=== PATIENT | male | born 1970 | race Caucasian/White ===

== ENCOUNTER 2017-10-11 13:12 | Day surgery (SDC) | payer MEDICARE, SELFPAY ==
[2017-10-11 13:49] VITALS: BP 140/91; PULSE 87; RESP 17; O2SAT 96; BMI 42.3
[2017-10-11 14:30] VITALS: BP 174/104; PULSE 78; RESP 20; O2SAT 97
[2017-10-11 14:32] VITALS: BP 174/106; PULSE 78; RESP 20; O2SAT 97
--- NOTE | 2017-10-11 14:32 | HMH.PMPROC ---
- Procedure Date: 10/11/17 Time: 14:35 Anesthesiologist:: Blas Rain MD Complications:: None Pre-procedure Diagnosis:: Degenerative disc disease of the lumbar spine postlaminectomy syndrome lumbar spine Post-procedure Diagnosis:: Same Indications for Procedure:: Patient is a pleasant 47-year-old white male who we are treating for chronic back pain secondary to have disc disease of the lumbar spine and postlaminectomy syndrome. Patient is currently doing well with intrathecal pain pump therapy. Patient presents today for intrathecal pain pump refill and reprogram. He is doing well with his intrathecal pain pump however he is having some increasing pain recently. He has increased pain with increased activity. We will refill his pump and increase his infusion today. Currently he is going at 0.75 mg per day. We will increase him to 1 mg per day of intrathecal morphine. Procedure Details:: Informed consent was obtained and the risks and benefits of the procedure was explained to the patient. The patient was taken to the procedure room. The pump was interrogated. The area over the pump was prepped using ChloraPrep. The pump was accessed with a 22-gauge needle. Approximately 4 mL's of the intrathecal solution was withdrawn and discarded. The pump was then refilled with 20 mL's of intrathecal morphine 5 mg per ml. The pump was interrogated and the infusion was increased to 1 mg per day. The patient tolerated the procedure well with no complication. Plan and Disposition:: We will follow-up with him in 3 months at his next pump refill. If he has any problems or needs a further increase he is to call us in the pain clinic.
[2017-10-11 14:51] VITALS: BP 134/88; PULSE 90; RESP 17; O2SAT 95
[2017-10-11 21:08] LABS: Amphetamine/Metha Screen,Urine Negative ng/mL (<1000); Barbiturates Screen,Urine Negative ng/mL (<200); Benzodiazepines Screen,Urine Negative ng/mL (200); Cannabinoid Screen,Urine Negative ng/mL (<50); Cocaine Screen,Urine Negative ng/g (<300); Methadone Screen,Urine Negative ng/mL (<300); Opiate Screen,Urine Positive ng/mL (<300); Phencyclidine Screen,Urine Negative ng/mL (<25)
[2017-10-25 08:23] LABS: Codeine Negative (Cutoff=100); Hydrocodone Negative (Cutoff=100); Hydromorphone Negative (Cutoff=100); Morphine Positive (.)
[2017-10-27 10:33] LABS: Opiates Positive (.)
== END 2017-10-11 14:53 | disposition home or self-care (01) ==
LOC: SC.PAINP 13:14
PROVIDERS: Family Provider Family Medicine; PCP Family Medicine; Visit Provider Nurse Anesthetist, Certified Registered
DX: M51.36 Other intervertebral disc degeneration, lumbar region (principal); M96.1 Postlaminectomy syndrome, not elsewhere classified
CPT/HCPCS: 62370; 80305; 80361; G0480

== ENCOUNTER → 2018-05-10 06:47 | Outpatient (CLI) | payer MEDICARE, SELFPAY ==
--- NOTE | 2018-05-10 06:54 | NM_ITS ---
History and Indications: Hypertension, family history, chest pain, shortness of breath, palpitations and fatigue Procedure: Patient exercised on Zana protocol 9 minutes, resting heart rate was 63 bpm, resting blood pressure 139/71, with exercise maximum heart rate achieved was 82 bpm which is greater than 85% of the maximum predicted heart rate and a blood pressure was 216/80. Test was stopped due to chest pain and shortness of breath. Patient has good exercise capacity achieved 10.1mets of workload on treadmill, the blood pressure response to exercise was hypertensive. Electrocardiogram: Resting electrocardiogram showed sinus rhythm, with exercise there is less than 1.[address] segment depression noted from the baseline EKG. The EKG portion of the exercise Myoview is negative for ischemia. Cardiac stress and resting SPECT images: Cardiac stress and rest SPECT images were obtained using technetium 99 Myoview 31.0 mCi at stress and 10.2 mCi at rest. Gated SPECT further analysis of segmental wall motion and calculation of the ejection fraction also done. Cardiac stress and rest SPECT images show a mild fixed defect in the inferior wall with normal contractility in the gated SPECT is likely secondary to soft tissue attenuation, no reversible ischemia seen. There are ejection fraction is 56% with no obvious regional wall motion abnormality, right ventricle is normal size and contractility. Conclusion: 1. The EKG portion of the exercise Myoview is negative for ischemia, patient has good exercise capacity achieved 10.1mets of workload on treadmill, the blood pressure response to exercise was hypertensive, test was stopped due to chest pain and shortness of breath. 2. No obvious scintigraphic evidence of reversible ischemia seen at this level of exercise, computer derived ejection fraction is 57% with no obvious regional wall motion abnormality, right ventricle is normal size and contractility.
== END ==
PROVIDERS: Family Provider Family Medicine; PCP Family Medicine; Visit Provider Family Medicine
DX: R07.9 Chest pain, unspecified (principal)
CPT/HCPCS: 78454; 93017; A9502

== ENCOUNTER → 2018-08-20 10:29 | Outpatient (POV) | payer MEDICARE, SELFPAY ==
[2018-08-20 10:51] VITALS: BP 161/87; PULSE 81; RESP 18; O2SAT 98; BMI 38.5
--- NOTE | 2018-08-20 10:58 | HMH.PMPROC ---
- Procedure Date: 08/20/18 Time: 10:55 Anesthesiologist:: Sheryl Del Toro APRN Complications:: None Pre-procedure Diagnosis:: Degenerative disc disease lumbar spine with postlaminectomy syndrome Post-procedure Diagnosis:: Same Indications for Procedure:: Patient is a pleasant 48-year-old white male who presents today for intrathecal pain pump adjustment along with discussion on his bilateral knee pain. Patient is tried injections in his knees before and has had no success with it. Patient has not been seen by Ragini Sahni. Patient has no recent x-rays. Patient rates his pain 8 out of 10. Patient is currently on a interthecal morphine pump going at 1 mg/day. We will give him a small increase. He denies side effects. Physical Exam General: Alert and oriented x3, no acute distress, pleasant and cooperative, Lungs: Resps E/U, Symmetrical chest expansion, Eyes: PERRL Musculoskeletal: Flexion and extension of lumbar spine somewhat guarded secondary to pain, deep tendon reflexes normal, strength in upper and lower extremities [5/5], [abnormal gait noted], range of motion bilateral knees somewhat guarded secondary to pain Neurological: speech clear, escort blind equal, no gross sensory deficits Procedure Details:: Informed consent was obtained and the risk and benefits of the procedure were explained to the patient. The patient was taken to the procedure room where noninvasive monitoring was placed including noninvasive blood pressure cuff and pulse oximeter. Patient's pump was interrogated. The infusion rate was increased to 1.25 mg/day. The patient tolerated the procedure well. Plan and Disposition:: We will set up the patient for x-rays of his bilateral knees and refer him to orthopedics. We will see the patient back at his next intrathecal pain pump refill and reprogram. Patient's been instructed to call the office if he has any issues prior to his next appointment. This note was dictated using voice recognition software and may contain errors or omissions
--- NOTE | 2018-08-20 11:04 | XR_ITS ---
XR knee LT 3V HISTORY: ITS.REASON: BILATERAL KNEE PAIN ORDERING PHYSICIAN: Sheryl Del Toro PATIENT AGE: 48 years COMPARISON: None FINDINGS: No fracture or dislocation. No lytic or blastic change. Normal mineralization. No significant arthritic changes evident. There is an ununited tibial tuberosity without fragmentation. No other significant findings IMPRESSION: No acute finding
--- NOTE | 2018-08-20 11:04 | XR_ITS ---
XR knee RT 3V HISTORY: Lateral right knee pain ORDERING PHYSICIAN: Sheryl Del Toro PATIENT AGE: 48 years COMPARISON: None FINDINGS: No fracture or dislocation. No lytic or blastic change. Normal mineralization. No significant arthritic changes evident. Tibial tuberosity is ununited with some minimal fragmentation and mild soft tissue swelling which may be seen with adult Pete-Schlatter's disease. Please correlate with clinical findings. IMPRESSION: 1. No acute finding. 2. Ununited tibial tuberosity with fragmentation and mild soft tissue swelling which may be seen with adult Pete-Schlatter's. Please correlate clinically
== END ==
LOC: SC.PAIN 10:30 → RAD 11:01
PROVIDERS: PCP Family Medicine; Visit Provider Clinical Nurse Specialist Family Health
DX: M25.561 Pain in right knee (principal); M25.562 Pain in left knee
CPT/HCPCS: 73562

== ENCOUNTER → 2018-08-28 09:10 | Outpatient (POV) | payer MEDICARE, SELFPAY ==
[2018-08-28 09:20] VITALS: BP 153/93; PULSE 90; RESP 18; O2SAT 98; BMI 38.5
--- NOTE | 2018-08-28 09:29 | HMH.PAINSOAP ---
[facility] Pain Management SOAP Note Subjective:: Patient is a pleasant 48-year-old white male who presents today for follow-up after x-rays. Patient has an appointment with Dr. Ronak Dallas for orthopedic evaluation. I encouraged him to keep this. Patient rates his pain 8 out of 10 however it is mostly in his knees. I will follow-up with him at his next intrathecal pain pump refill and reprogram. ROS General: no recent weight change, no fever, no sleep disturbances Respiratory: no cough, no shortness of air, no recurring pulmonary infections Cardiovascular/Peripheral Vascular: No chest pain, No palpitations, no edema, no shortness of breath. Gastrointestinal: no incontinence, normal bowel movements reported Genitourinary: no incontinence Musculoskeletal: Knee pain bilaterally Psychiatric: normal mood/ affect Neurological: [denies weakness in extremities], [denies balance issues] Objective:: Physical Exam General: Alert and oriented x3, no acute distress, pleasant and cooperative, [on room air] Lungs: Resps E/U, Symmetrical chest expansion, Eyes: PERRL Musculoskeletal: Flexion and extension of lumbar spine somewhat guarded secondary to pain, deep tendon reflexes normal, strength in upper and lower extremities [5/5], [abnormal gait noted] Neurological: speech clear, events director equal, no gross sensory deficits Assessment:: Degenerative disc disease lumbar spine with postlaminectomy syndrome and bilateral knee pain Plan:: We will follow-up with the patient is next intrathecal pain pump refill and reprogram. Patient's been to call the office if he has any issues prior to his next appointment. Patient is going to see his orthopedic surgeon today. This note was dictated using voice recognition software and may contain errors or omissions
== END ==
PROVIDERS: PCP Psychiatry & Neurology Sleep Medicine; Visit Provider Clinical Nurse Specialist Family Health
DX: M51.36 Other intervertebral disc degeneration, lumbar region (principal); M96.1 Postlaminectomy syndrome, not elsewhere classified; M25.561 Pain in right knee; M25.562 Pain in left knee
CPT/HCPCS: 99213

== ENCOUNTER → 2018-09-13 12:20 | Outpatient (CLI) | payer MEDICARE, SELFPAY ==
--- NOTE | 2018-09-13 12:25 | IR_ITS ---
CT knee RT w con, IR arthrogram knee RT INDICATION: Persistent right lateral knee pain following injury ITS.REASON: RIGHT KNEE PAIN ORDERING PHYSICIAN: Roberto Tineo PATIENT AGE: 48 years COMPARISON: None TECHNIQUE: Following obtaining informed consent under fluoroscopic guidance using aseptic technique, a lateral patellar approach was first attempted for contrast injection into the knee joint with a 25-gauge needle.. Intra-articular injection was not confirmed initially therefore, anterior approach was performed with a 25-gauge needle and intra-articular injection medially confirmed. Approximately 35 cc of a mixture of 1% lidocaine and Isovue 300 was injected without incident. No immediate complications. Spot images were obtained Fluoroscopy time: 2 minutes and 12 seconds The patient was then taken to the CT suite where axial images are obtained of the knee with multiplanar reformats. All CT scans at the facility use one or more dose reduction, viz: automated exposure control, ma/kV adjustment per patient size (including targeted exams where dose is matched to indication, i.e. head), or iterative reconstruction technique. FINDINGS: Ununited tibial tuberosity apophysis. The posterior cruciate and anterior cruciate ligaments are identified and appear intact. Contrast fills the supra patellar recess. There is a sclerotic lesion in the superior aspect of the patella with a bone island which measures 7 mm. The contrast outlines the menisci. No obvious meniscal tear is identified.. There is minimal irregularity of the articular cartilage of the medial femoral condyle IMPRESSION: 1. No evidence of meniscal tear. Cruciate ligaments appear intact. 2. Minimal articular cartilage irregularity of the medial femoral condyle IMPRESSION:
== END ==
PROVIDERS: PCP Family Medicine; Visit Provider Orthopaedic Surgery Adult Reconstructive Orthopaedic Surgery
DX: M25.561 Pain in right knee (principal); R55 Syncope and collapse
CPT/HCPCS: 73580; 73701; 93225; 93226; Q9967

== ENCOUNTER → 2018-09-14 14:59 | Outpatient (CLI) | payer MEDICARE, SELFPAY ==
[2018-09-14 15:06] LABS: Adenovirus F 40/41, stool Not Detected (NotDetected); Astrovirus Not Detected (NotDetected); Campylobacter Not Detected (NotDetected); Clostridium Difficile A/B, PCR Not Detected (NotDetected); Cryptosporidium Not Detected (NotDetected); Cyclospora Cayetanesis Not Detected (NotDetected); Entamoeba histolytica Not Detected (NotDetected); Enteroaggregative E coli Not Detected (NotDetected); Enteropathogenic E coli Not Detected (NotDetected); Enterotoxigenic E coli Not Detected (NotDetected); Giardia lamblia Not Detected (NotDetected); Norovirus Not Detected (NotDetected); Plesimonas Shigalloides, PCR Not Detected (NotDetected); Rotavirus A Not Detected (NotDetected); Salmonella, PCR Not Detected (NotDetected); Sapovirus Not Detected (NotDetected); Shiga-like toxin E coli Not Detected (NotDetected); Shigella Enterovasive E coli Not Detected (NotDetected); Vibrio Cholerae Not Detected (NotDetected); Vibrio, PCR Not Detected (NotDetected); Yersinia Entercolitica, PCR Not Detected (NotDetected)
== END ==
LOC: LAB 15:02 → LAB.DROPOF 15:05
PROVIDERS: Visit Provider Physician Assistant
DX: R19.7 Diarrhea, unspecified (principal)
CPT/HCPCS: 87507

== ENCOUNTER → 2018-09-28 10:25 | Outpatient (POV) | payer MEDICARE, SELFPAY ==
[2018-09-28 10:36] VITALS: BP 144/84; PULSE 89; O2SAT 100; BMI 41.4
--- NOTE | 2018-09-28 10:50 | HMH.PMPROC ---
- Procedure Date: 09/28/18 Time: 10:50 Anesthesiologist:: Blas Rain MD Complications:: None Pre-procedure Diagnosis:: Degenerative disc disease of lumbar spine with lumbar radicular symptoms Post-procedure Diagnosis:: Same Indications for Procedure:: This patient is a pleasant 48-year-old white male who we are treating for low back pain with lumbar radicular symptoms. He had his pump increased to 1.25 mg/day morphine at his last visit. This was approximately a month ago. Since his last increase he has had excessive drowsiness has been unable to sleep at night with restless leg. He did not have any of this before his increase. He was better with his symptoms prior to the increase. He is most likely getting overmedicated. We will decrease his pump back down to his previous dose of 1 mg/day of intrathecal morphine. Procedure Details:: Interrogation and reprogramming of intrathecal pain pump Informed consent was obtained and the risk and benefits of the procedure was explained to the patient. Patient was taken to the procedure room. The pump was interrogated. Intrathecal morphine pain pump was decreased from 1.25 mg/day to 1 mg/day. Patient tolerated the procedure well with no complications. Plan and Disposition:: We will follow-up with him in 2 weeks. Will reevaluate symptoms at that time. He is scheduled to have surgery on his knee by Dr. Koch. He has a meniscal tear. He will have a knee arthroscopy with meniscal repair.
== END ==
PROVIDERS: PCP Family Medicine; Visit Provider Clinical Nurse Specialist Family Health
DX: M51.16 Intervertebral disc disorders with radiculopathy, lumbar region (principal)
CPT/HCPCS: 62368

== ENCOUNTER → 2018-09-28 12:47 | Outpatient (CLI) | payer MEDICARE, SELFPAY ==
--- NOTE | 2018-09-28 14:07 | MR_ITS ---
EXAM: MRI brain without and with contrast. INDICATION: Persistent headaches with dizziness. Headache, dizziness, blurred vision ORDERING PHYSICIAN: Oliver Lerma MD PATIENT AGE: 48 years Comparison: None TECHNIQUE: Multiplanar multiecho sequences performed without and with gadolinium enhancement. FINDINGS: No midline shift, mass effect, intracranial hemorrhage, or hydrocephalus is evident. The cerebellopontine angles, cerebellum, brainstem are unremarkable. There is normal sands-white matter differentiation with no abnormal T2 white matter hyperintensities evident. No enhancing lesions apparent. No intra or extra-axial mass or hemorrhage. No large aneurysms. Small aneurysms may not be seen with this technique and may be better evaluated for with MRA if clinically warranted. The hippocampal gyri anterior frontal horns of the lateral ventricles are unremarkable. No mastoid effusion or sinus air-fluid level. The pituitary, optic chiasm, and craniocervical junction have an unremarkable IMPRESSION: Negative MRI of the brain without contrast
--- NOTE | 2018-09-28 14:33 | XR_ITS ---
XR abdomen min 2V COMPARISON: KUB and upright abdomen 02/02/2016 HISTORY: Evaluation for pain pump placement TECHNIQUE: AP and lateral views lower abdomen sacrum and coccyx FINDINGS: The pain pump is seen just beneath the surface of the skin projecting over the superior aspect of the right SI joint. The metallic brackets and pedicle screws are again seen for fusion of L4, L5 and S1. The small caliber catheter extending from the pain pump appears to an of the spinal canal at L5-S1 level and is seen extending upward off the [id number] but at least above the L2 vertebral body. IMPRESSION: Pain pump and catheter positioning as described
--- NOTE | 2018-09-28 15:31 | HMH.ITSHM ---
Current Home Medications as stated by this patient Roberto Medeiros JR or market survey representative. [] MORPHINE LOSARTAN POTASSIUM MELOXICAM LEVOTHYROXINE
== END ==
PROVIDERS: PCP Family Medicine; Visit Provider Family Medicine
DX: R55 Syncope and collapse (principal)
CPT/HCPCS: 62368; 70553; 74019; 95816; A9576

== ENCOUNTER → 2018-10-05 06:59 | Outpatient (CLI) | payer MEDICARE, SELFPAY ==
--- NOTE | 2018-10-05 07:01 | CA_ITS ---
PROCEDURE: 2-D M-mode and color Doppler study INDICATIONS FOR THE TEST: Chest pain+ COPD Heart Murmur Tobacco Smoking Palpitations+ Fatigue Syncope+ Edema+ Hypertension+Diabetes Mellitus Rheumatic Fever SOB RODRIGUEZ Obesity+Hyperlipidemia Family History HD Additional History ANGEL PATIENT INFORMATION HEIGHT: 74 WEIGHT:328 GENDER: Male B/P:143/97 2-D/M-MODE INTERPRETATION: 2-D MEASUREMENTS OBSERVED VALUES IN CMS Right Ventricular Dimension (RVDd) 1.2 Interventricular Septum (Thickness)(IVsd) 0.9 Left Ventricular Internal Dimensions(LVIDd) 5.7 Left Ventricular Posterior Wall (Thickness)(LVPWd) 0.9 Aortic Root 3.7 Aortic Cusp Separation 2.6 Left Atrial Dimensions (LAD) 3.9 2D 1. Left atrium is mildly enlarged, left ventricle is normal size, there is mild qualitative concentric left ventricular hypertrophy, visually estimated ejection fraction of 55% with no regional wall motion abnormality. 2. The right atrium and right ventricle are normal size and contractility. 3. The aortic valve is minimally thickened and fibrosed. 4. The mitral and tricuspid valve leaflets are minimally thickened. 5. The pulmonic valve is poorly visualized. 6. No significant pericardial effusion noted. DOPPLER INTERROGATION: Doppler interrogation of the aortic, mitral and tricuspid valvular presence of mild mitral and tricuspid regurgitation, tricuspid regurgitation jet velocity is inadequate for calculation of the right ventricular systolic pressure, grade 1 diastolic dysfunction seen with tissue Doppler evidence of raised left atrial pressure. CONCLUSION: 1. Mildly enlarged left atrium, normal left ventricular size, mild qualitative concentric left ventricular hypertrophy, visually estimated ejection fraction 55% with no regional wall motion abnormality, grade 1 diastolic dysfunction seen with tissue Doppler evidence of raised left atrial pressure. 2. Mild mitral and tricuspid regurgitation 3. No significant pericardial effusion noted.
--- NOTE | 2018-10-05 07:01 | NM_ITS ---
History and Indications: Hypertension, family history, palpitations and fatigue Procedure: Patient received a 0.4 mg of intravenous Lexiscan, resting heart rate was 64 bpm resting blood pressure 145/90, scan maximum heart rate achieved was 87 bpm which is less than 85% of the maximum predicted heart rate and a blood pressure was 147/85. With Lexiscan patient complained of shortness of breath. Electrocardiogram: Resting electrocardiogram showed sinus rhythm, with Lexiscan there is less than 1.[address] segment depression from the baseline EKG. The EKG portion of the Lexiscan Myoview is nondiagnostic. Cardiac stress and resting SPECT images: Cardiac stress and rest SPECT images were obtained using technetium 99 Myoview 32.0 mCi stress and 10.5 mCi at rest, gated SPECT further analysis of segmental wall motion and calculation of ejection fraction also done. Cardiac stress and rest images show mild decreased tracer activity in the inferior wall which improves on the resting images suggestive of reversible ischemia. Computer derived ejection fraction is 56% with no regional wall motion abnormality, right ventricle is mildly enlarged with normal contractility. Conclusion: 1. The EKG portion of the Lexiscan Myoview is nondiagnostic. 2. Scintigraphic evidence of mild reversible ischemia involving the inferior wall, computer derived ejection fraction 56% with no regional wall motion abnormality, right ventricle is mildly enlarged with normal contractility. 3. Abnormal Lexiscan Myoview study.
--- NOTE | 2018-10-05 07:01 | CT_ITS ---
CT heart w calcium score INDICATION: Chest pain, family history of heart disease ITS.REASON: z ORDERING PHYSICIAN: Chris Mercado MD PATIENT AGE: 48 years COMPARISON: None TECHNIQUE: Axial images are obtained without contrast. Sagittal and coronal reformatted images are reviewed as well. All CT scans at the facility use one or more dose reduction, viz: automated exposure control, ma/kV adjustment per patient size (including targeted exams where dose is matched to indication, i.e. head), or iterative reconstruction technique. FINDINGS: Coronary artery calcium score 0. No identifiable atherosclerotic plaque with very low cardiovascular disease risk is. There are calcified nodes in the left hilum. IMPRESSION: Coronary artery calcium score of 0
== END ==
PROVIDERS: PCP Family Medicine; Visit Provider Internal Medicine Cardiovascular Disease
DX: R06.02 Shortness of breath; I10 Essential (primary) hypertension; R53.83 Other fatigue; R55 Syncope and collapse; Z82.49 Family history of ischemic heart disease and other diseases of the circulatory system; R07.89 Other chest pain
CPT/HCPCS: 75571; 78452; 93017; 93306; A9502; J2785

== ENCOUNTER → 2019-01-16 12:44 | Outpatient (POV) | payer MEDICARE, SELFPAY ==
[2019-01-16 12:55] VITALS: BP 148/94; PULSE 76; RESP 18; O2SAT 96; BMI 38.5
--- NOTE | 2019-01-16 13:26 | HMH.PMPROC ---
- Procedure Date: 01/16/19 Time: 13:27 Anesthesiologist:: Blas Rain MD Complications:: None Pre-procedure Diagnosis:: Degenerative disc disease of lumbar spine with lumbar radicular symptoms Post-procedure Diagnosis:: Same Indications for Procedure:: This patient is a pleasant 48-year-old white male who we are treating for low back pain with lumbar radicular symptoms. He has a intrathecal [employer] pain pump in place. He is currently going at 1 mg/day with concentration of 10 mg/mL. He has had 2 episodes where he has had blurry vision slurred speech and lethargy which is transient however was attributed to overmedication at the emergency room here in [facility]. His first episode was back in September his last episode was yesterday. He presents today for adjustment of his pump and to check pump logs to make sure there is no malfunction. We will also refer him to a neurologist as there may be another etiology for his blurred vision and slurred speech which may be transient such as a TIA. He is also supposed to see Dr. Torres for any surgical intervention and we will seek approval for intrathecal ziconotide as he may be a candidate for nonnarcotic medication. Procedure Details:: Pump adjustment and reprogramming Informed consent was obtained and the risk and benefits of the procedure was explained to the patient. Intrathecal pump was interrogated. Intrathecal morphine dose was decreased to 0.8 mg/day from 1 mg/day. We did check the logs and there is no evidence of malfunction. Low reservoir alarm date is 03/22/2019. Patient tolerated the procedure well with no complication. Plan and Disposition:: We will follow-up with this patient after he sees Dr. Aguilar and Dr. Torres. We will also seek approval for intrathecal ziconotide. If he has any problems with his pump he is to call us in the pain clinic.
== END ==
PROVIDERS: PCP Family Medicine; Visit Provider Anesthesiology
DX: M51.16 Intervertebral disc disorders with radiculopathy, lumbar region (principal); Z45.89 Encounter for adjustment and management of other implanted devices
CPT/HCPCS: 62368

== ENCOUNTER → 2019-01-17 15:14 | Outpatient (CLI) | payer MEDICARE, SELFPAY ==
--- NOTE | 2019-01-17 15:19 | MR_ITS ---
MR lumbar spine wo/w con, MR 3-d myelogram/MRCP HISTORY: Bilateral leg pain, numbness and tingling since back FX 2003. ITS.REASON: LOW BACK PAIN, prior back surgery ORDERING PHYSICIAN: Fei Torres PATIENT AGE: 48 years Comparison: X-RAY 08-18-08 TECHNIQUE: Standard multiplanar multiecho sequences are performed without contrast. 3-D MIP and myelographic images are also rendered and reviewed FINDINGS: There is normal alignment. The spinal cord ends at the L1 level. There has been prior posterior fusion with interpedicular screws at L4, L5, and S1 on the right and at L4 and S1 on the left. L1-L2: Unremarkable. L2-L3: Minimal bulging disc with mild facet and ligamentum flavum hypertrophy with mild bilateral foraminal narrowing. L3-L4: Mild ligamentum hypertrophic change with mild left lateral recess narrowing. L4-L5: Degenerative disc disease. Significant artifact from intrapedicular screws. There is ligamentum hypertrophy on the left with mild left lateral recess narrowing. L5-S1: Mild degenerative disc disease with artifact from the posterior fusion. There is mild bilateral foraminal narrowing from facet hypertrophic change. No canal stenosis or extruded herniated disc. IMPRESSION: 1. Postsurgical changes at L4-L5 and L5-S1 with artifact. 2. Lumbar spondylosis with mild bulging disc and ligamentum flavum and facet hypertrophic change with mild lateral recess and foraminal narrowing as detailed above. 3. No canal stenosis or disc herniation evident
--- NOTE | 2019-01-17 15:33 | XR_ITS ---
XR abdomen min 2V HISTORY: ITS.REASON: EVAL POSITION OF PAIN PUMP ORDERING PHYSICIAN: Fei Torres PATIENT AGE: 48 years COMPARISON: 09/28/2018 TECHNIQUE: AP and lateral views are obtained of the abdomen. FINDINGS: A rounded pain infusion pump is present in the subcutaneous tissues posterior to the right hemisacrum and is oriented parallel with the sacrum and not at a 90 degree angle to the long axis of the body. Prior posterior fusion with interpedicular screws at L4, L5, and S1. The pain catheter epidural line is noted and is above the upper border of the image. IMPRESSION: Pain pump and catheter present as described above
== END ==
PROVIDERS: PCP Family Medicine; Visit Provider Neurological Surgery
DX: M54.5 Low back pain (principal)
CPT/HCPCS: 72158; 74019; 76376; A9576

== ENCOUNTER → 2019-01-18 10:17 | Outpatient (POV) | payer MEDICARE, SELFPAY ==
[2019-01-18 10:30] VITALS: BP 136/85; PULSE 84; RESP 18; O2SAT 98; BMI 38.5
--- NOTE | 2019-01-18 11:08 | P.CONS_ITS ---
[facility] Pain Management SOAP Note Subjective:: This patient is a pleasant 48-year-old white male who we are seeing for side effects associated with his intrathecal pain pump. Releases pump 20% at his last visit. He is having increasing pain since we reduce his pump however he has had episodes with overmedication. He recently saw his primary care doctor and was given Percocet. I have discouraged the use of Percocet on top of his intrathecal pain pump as if we are dealing with overmedication he does not need to be taking any oral narcotics. We are awaiting appointment with Dr. Aguilar. We have reviewed his MRI which does show postoperative changes but no significant changes to his degenerative disc disease and ligamentum flavum hypertrophy with arthritis and bulging disc. There does not seem to be a surgical problem. He is not on a muscle relaxant or anti-inflammatory. I will start him on Zanaflex 4 mg 3 times a day and diclofenac 75 mg twice a day. I have talked to his about the recall on the Medtronic pump and I told him that his pump was not recalled. Also she is inquiring about kinking of the catheter. He has no signs and symptoms of kinking of his intrathecal catheter with no discrepancies and reservoir volumes with refills. He is scheduled for refill next week. We will seek approval for intrathecal catheter dye study to assess patency of the catheter. We are also waiting approval for Prialt as a nonnarcotic medication for his intrathecal therapy. Objective:: Alert and oriented x3 no acute distress. Patient does have an intrathecal pain pump currently running at 0.8 mg/day of intrathecal morphine. He has an antalgic gait. Motor strength of lower extremities is 5/5. There is no gross sensory deficit. Assessment:: Degenerative disease of lumbar spine with lumbar radiculopathy symptoms and postlaminectomy syndrome of lumbar spine Plan:: We are awaiting appointment with Dr. Aguilar. We have reviewed his MRI which does show postoperative changes but no significant changes to his degenerative disc disease and ligamentum flavum hypertrophy with arthritis and bulging disc. There does not seem to be a surgical problem. He is not on a muscle relaxant or anti-inflammatory. I will start him on Zanaflex 4 mg 3 times a day and diclofenac 75 mg twice a day. I have talked to his about the recall on the Medtronic pump and I told him that his pump was not recalled. Also she is inquiring about kinking of the catheter. He has no signs and symptoms of kinking of his intrathecal catheter with no discrepancies and reservoir volumes with refills. He is scheduled for refill next week. We will seek approval for intrathecal catheter dye study to assess patency of the catheter. We are also waiting approval for Prialt as a nonnarcotic medication for his intrathecal therapy.
== END ==
PROVIDERS: PCP Family Medicine; Visit Provider Anesthesiology
DX: M51.16 Intervertebral disc disorders with radiculopathy, lumbar region (principal); M96.1 Postlaminectomy syndrome, not elsewhere classified
CPT/HCPCS: 99211

== ENCOUNTER → 2019-02-06 07:57 | Outpatient (CLI) | payer MEDICARE, SELFPAY ==
--- NOTE | 2019-02-06 08:02 | CI_ITS ---
Cerebrovascular Exam Indications: 780.2 Syncope and collapse. 784.3 Aphasia. IMPRESSIONS 1. The bilateral vertebral arteries are patent with normal antegrade flow. 2. Study suggests less than 20% stenosis involving the right internal carotid artery and the left internal carotid artery. technically difficult exam secondary to body habitus Carotid duplex study. Complete study and Doppler flow study including spectral analysis, color and sands scale imaging. Height: Height: 188cm. Height: 74in. Weight: Weight: 136.1kg. Weight: 299.4lb. Body mass index: BMI: 38.5kg/m^2. Body surface area: BSA: 2.72m^2. Location: Vascular laboratory. Patient status: Outpatient. Tables: Arterial flow: + +--------+--------+ Location V sys V ed + +--------+--------+ Right CCA - proximal 91.1cm/s 25.1cm/s + +--------+--------+ Right CCA - distal 101cm/s 29.9cm/s + +--------+--------+ Right ECA 114cm/s -------- + +--------+--------+ Right ICA - proximal 87.2cm/s 29.9cm/s + +--------+--------+ Right ICA - mid 78.6cm/s 19.6cm/s + +--------+--------+ Right ICA - distal 98.2cm/s 30.6cm/s + +--------+--------+ Right vertebral 47.9cm/s -------- + +--------+--------+ Left CCA - proximal 101cm/s 25.1cm/s + +--------+--------+ Left CCA - distal 123cm/s 41.6cm/s + +--------+--------+ Left ECA 90.4cm/s -------- + +--------+--------+ Left ICA - proximal 57.6cm/s 22.2cm/s + +--------+--------+ Left ICA - mid 64cm/s 28.5cm/s + +--------+--------+ Left ICA - distal 61.3cm/s 25.4cm/s + +--------+--------+ Left vertebral 33.8cm/s -------- + +--------+--------+ Velocity ratios: + + + + + + Right, V sys Right, V ed Left, V sys Left, V ed + + + + + + Max ICA/dist CCA 0.97 1.02 0.52 0.69 + + + + + + (Report amended ) Electronically signed by: German Marroquin [id number]
--- NOTE | 2019-02-06 08:06 | CT_ITS ---
CT lumbar spine wo con INDICATION: Low back pain and bilateral leg pain ITS.REASON: LOW BACK PAIN ORDERING PHYSICIAN: Fei Torres PATIENT AGE: 48 years COMPARISON: 01/17/2019 TECHNIQUE: Axial images obtained with sagittal and coronal reformats. All CT scans at the facility use one or more dose reduction, viz: automated exposure control, ma/kV adjustment per patient size (including targeted exams where dose is matched to indication, i.e. head), or iterative reconstruction technique. FINDINGS: There is normal alignment. There is an epidural catheter present which enters at the L5-S1 region posteriorly and directed superiorly with the superior tip at the T 11 region on the left. There is normal alignment. No acute fracture or dislocation evident. There has been prior posterior fusion at L4-5 and L5-S1. T11-T12: Minimal endplate osteophytes are noted anteriorly with minimal bulging disc. L1-L2: Unremarkable. L2-L3: Unremarkable. L3-L4: Minimal bulging disc along with mild facet and ligamentum flavum hypertrophy with mild bilateral lateral recess narrowing. L4-L5: Interpedicular screws are present at L4 bilaterally. There is hypertrophic change of the facets on both sides. There is mild degenerative disc disease at L4-L5 with bulging disc. Prior laminectomy defect posteriorly. L5-S1: There is a right interpedicular screw at L5 with mild hypertrophic changes of the facets and prior laminectomy at L5. Bilateral interpedicular screws are present at S1. Connecting rods are present bilaterally connecting the interpedicular screws. IMPRESSION: 1. Postsurgical changes with posterior fusion at L4-L5 and L5-S1 as described above. 2. Mild degenerative changes at T11-T12 and L3-L4.
== END ==
PROVIDERS: PCP Family Medicine; Visit Provider Neurological Surgery
DX: G93.40 Encephalopathy, unspecified (principal); R40.4 Transient alteration of awareness; M54.5 Low back pain; R55 Syncope and collapse
CPT/HCPCS: 72131; 93880

== ENCOUNTER → 2019-05-13 11:22 | Outpatient (POV) | payer MEDICARE, SELFPAY ==
[2019-05-13 11:52] VITALS: BP 138/77; PULSE 65; RESP 18; O2SAT 98; BMI 43.0
--- NOTE | 2019-05-13 12:47 | HMH.PMPROC ---
- Procedure Date: 05/13/19 Time: 12:48 Anesthesiologist:: Sheryl Del Toro APRN Complications:: None Pre-procedure Diagnosis:: Degenerative disc disease lumbar spine with lumbar radiculopathy and post laminectomy syndrome Post-procedure Diagnosis:: Same Indications for Procedure:: Patient is a pleasant 49-year-old white male who presents today for the turning down of his intrathecal pain pump. Patient states that Dr. Torres told him to have his pump weaned and removed and that he can take away his pain completely with surgery. At her last visit we had a long discussion in regards to this. We will wean the patient's pump down until it can be removed by Dr. Torres we will not be supplementing with any oral narcotic medications nor will we continue him on oral narcotic regimen post surgery. Patient states his pain is a 7 out of [address] Torres has told him that he will bridge him with oral narcotic supplementation. Physical Exam General: Alert and oriented x3, no acute distress, pleasant and cooperative, [on room air] Lungs: Resps E/U, Symmetrical chest expansion, Eyes: PERRL Musculoskeletal: Flexion and extension of lumbar spine somewhat guarded secondary to pain, deep tendon reflexes normal, strength in upper and lower extremities [5/5], [abnormal gait noted] Neurological: speech clear, fire equipment repairer inspector equal, no gross sensory deficits Procedure Details:: Informed consent was obtained and the risk and benefits of the procedure were explained to the patient. The patient was taken to the procedure room where noninvasive monitoring was placed including noninvasive blood pressure cuff and pulse oximeter. Patient's pump was interrogated and reprogrammed. The infusion rate was decreased to 0.72 mg of morphine a day. The patient tolerated the procedure well. Plan and Disposition:: We will continue to decrease the patient by 20%. We will turn him down in 2 weeks to 0.576 mg of morphine a day. Patient understands that once he is weaned off his intrathecal pain pump this will be the termination of his pump care and as prescribing any medications for him. I will follow-up with the patient in 2 weeks we will turn him down. He is been instructed to call the office if he has any issues prior to his next appointment. Dr. Rain has reviewed this note and agrees with this plan of care. This note was dictated using voice recognition software and may contain errors or omissions
--- NOTE | 2019-05-13 12:50 | P.PCN_ITS ---
- Procedure Date: 05/13/19 Time: 12:48 Anesthesiologist:: Sheryl Del Toro APRN Complications:: None Pre-procedure Diagnosis:: Degenerative disc disease lumbar spine with lumbar radiculopathy and post laminectomy syndrome Post-procedure Diagnosis:: Same Indications for Procedure:: Patient is a pleasant 49-year-old white male who presents today for the turning down of his intrathecal pain pump. Patient states that Dr. Torres told him to have his pump weaned and removed and that he can take away his pain completely with surgery. At her last visit we had a long discussion in regards to this. We will wean the patient's pump down until it can be removed by Dr. Torres we will not be supplementing with any oral narcotic medications nor will we continue him on oral narcotic regimen post surgery. Patient states his pain is a 7 out of [address] Torres has told him that he will bridge him with oral narcotic supplementation. Physical Exam General: Alert and oriented x3, no acute distress, pleasant and cooperative, [on room air] Lungs: Resps E/U, Symmetrical chest expansion, Eyes: PERRL Musculoskeletal: Flexion and extension of lumbar spine somewhat guarded second rocky to pain, deep tendon reflexes normal, strength in upper and lower extremities [5/5], [abnormal gait noted] Neurological: speech clear, charge entry specialist equal, no gross sensory deficits Procedure Details:: Informed consent was obtained and the risk and benefits of the procedure were explained to the patient. The patient was taken to the procedure room where noninvasive monitoring was placed including noninvasive blood pressure cuff and pulse oximeter. Patient's pump was interrogated and reprogrammed. The infusion rate was decreased to 0.72 mg of morphine a day. The patient tolerated the procedure well. Plan and Disposition:: We will continue to decrease the patient by 20%. We will turn him down in 2 weeks to 0.576 mg of morphine a day. Patient understands that once he is weaned off his intrathecal pain pump this will be the termination of his pump care and as prescribing any medications for him. I will follow-up with the patient in 2 weeks we will turn him down. He is been instructed to call the office if he has any issues prior to his next appointment. Dr. Rain has reviewed this note and agrees with this plan of care. This note was dictated using voice recognition software and may contain errors or omissions
== END ==
PROVIDERS: PCP Family Medicine; Visit Provider Clinical Nurse Specialist Family Health
DX: M51.16 Intervertebral disc disorders with radiculopathy, lumbar region (principal); M96.1 Postlaminectomy syndrome, not elsewhere classified
CPT/HCPCS: 62368

== ENCOUNTER → 2019-05-28 09:43 | Outpatient (POV) | payer MEDICARE, SELFPAY ==
--- NOTE | 2019-05-28 11:02 | HMH.PMPROC ---
- Procedure Date: 05/28/19 Time: 11:03 Anesthesiologist:: Sheryl Del Toro APRN Complications:: None Pre-procedure Diagnosis:: Degenerative disc disease lumbar spine with lumbar radiculopathy postlaminectomy syndrome Post-procedure Diagnosis:: Same Indications for Procedure:: patient is a pleasant 49-year-old white male who presents today for intrathecal pain pump adjustment. We are turning is in her goal infusion down. Patient states that Dr. Torres has promised him to take away all of his pain after surgery. Patient and I have had a long discussion in regards to this. He wants to continue to wean the patient's pump until its can be removed by Dr. Torres. We will not be supplementing any oral narcotic medications nor will we continue him on oral narcotic regimen post surgery. After the pump is removed and will terminate his relationship with his clinic. Patient understands that. Dr. Rain is aware of this. He rates his pain 8 out of 10. He is currently at 0.72 mg of morphine a day. Patient states that Dr. Torres has told him that he will bridge him to with oral narcotics supplementation. Physical Exam General: Alert and oriented x3, no acute distress, pleasant and cooperative, [on room air] Lungs: Resps E/U, Symmetrical chest expansion, Eyes: PERRL Musculoskeletal: Flexion and extension of lumbar spine somewhat guarded secondary to pain, deep tendon reflexes normal, strength in upper and lower extremities [5/5], slightly antalgic gait noted Neurological: speech clear, chair upholsterer equal, no gross sensory deficits Procedure Details:: Informed consent was obtained and the risk and benefits of the procedure were explained to the patient. The patient was taken to the procedure room where noninvasive monitoring was placed including noninvasive blood pressure cuff and pulse oximeter. Patient's pump was interrogated and reprogrammed. The infusion rate was decreased to 0.57 mg of morphine a day. The patient tolerated the procedure well. Plan and Disposition:: We will tentatively make an appointment to decrease his again in 2 weeks. He is in a contact Dr. Torres I discussed with him that this is a beginning dose that they should be able to remove it and bridge him with oral if necessary. He is been instructed to call the office if he has any issues prior to his next appointment. Dr. Rain has reviewed this note and agrees with this plan of care. This note was dictated using voice recognition software and may contain errors or omissions
[2019-05-28 11:07] VITALS: BP 135/89; PULSE 85; RESP 18; O2SAT 98; BMI 43.6
--- NOTE | 2019-05-28 11:07 | P.PCN_ITS ---
- Procedure Date: 05/28/19 Time: 11:03 Anesthesiologist:: Sheryl Del Toro APRN Complications:: None Pre-procedure Diagnosis:: Degenerative disc disease lumbar spine with lumbar radiculopathy postlaminectomy syndrome Post-procedure Diagnosis:: Same Indications for Procedure:: patient is a pleasant 49-year-old white male who presents today for intrathecal pain pump adjustment. We are turning is in her goal infusion down. Patient states that Dr. Torres has promised him to take away all of his pain after surgery. Patient and I have had a long discussion in regards to this. He wants to continue to wean the patient's pump until its can be removed by Dr. Torres. We will not be supplementing any oral narcotic medications nor will we continue him on oral narcotic regimen post surgery. After the pump is removed and will terminate his relationship with his clinic. Patient understands that. Dr. Rain is aware of this. He rates his pain 8 out of 10. He is currently at 0.72 mg of morphine a day. Patient states that Dr. Torres has told him that he will bridge him to with oral narcotics supplementation. Physical Exam General: Alert and oriented x3, no acute distress, pleasant and cooperative, [on room air] Lungs: Resps E/U, Symmetrical chest expansion, Eyes: PERRL Musculoskeletal: Flexion and extension of lumbar spine somewhat guarded secondary to pain, deep tendon reflexes normal, strength in upper and lower extremities [5/5], slightly antalgic gait noted Neurological: speech clear, center line cutter operator equal, no gross sensory deficits Procedure Details:: Informed consent was obtained and the risk and benefits of the procedure were explained to the patient. The patient was taken to the procedure room where noninvasive monitoring was placed including noninvasive blood pressure cuff and pulse oximeter. Patient's pump was interrogated and reprogrammed. The infusion rate was decreased to 0.57 mg of morphine a day. The patient tolerated the pro cedure well. Plan and Disposition:: We will tentatively make an appointment to decrease his again in 2 weeks. He is in a contact Dr. Torres I discussed with him that this is a beginning dose that they should be able to remove it and bridge him with oral if necessary. He is been instructed to call the office if he has any issues prior to his next appointment. Dr. Rain has reviewed this note and agrees with this plan of care. This note was dictated using voice recognition software and may contain errors or omissions
== END ==
PROVIDERS: PCP Family Medicine; Visit Provider Clinical Nurse Specialist Family Health
DX: M51.16 Intervertebral disc disorders with radiculopathy, lumbar region (principal); M96.1 Postlaminectomy syndrome, not elsewhere classified
CPT/HCPCS: 62368

== ENCOUNTER → 2019-06-10 11:14 | Outpatient (POV) | payer MEDICARE, SELFPAY ==
[2019-06-10 12:29] VITALS: BP 158/88; PULSE 87; RESP 18; O2SAT 98; BMI 42.3
--- NOTE | 2019-06-10 14:11 | HMH.PMPROC ---
- Procedure Date: 06/10/19 Time: 14:11 Anesthesiologist:: Sheryl Del Toro APRN Complications:: None Pre-procedure Diagnosis:: Postlaminectomy syndrome, degenerative disc disease lumbar spine with lumbar radiculopathy Post-procedure Diagnosis:: Same Indications for Procedure:: Patient is a pleasant 49-year-old white male who presents today for intrathecal pain pump adjustment. We are turning his infusion to minimal flow today. Patient states that Dr. Torres is promised him to take away all of his pain after surgery. Patient and I have had multiple long discussion in regards to this. He wants to continue to wean the pump and have it removed by Dr. Torres on July 02. We will not be supplementing any oral narcotic medications nor will we continue him on oral narcotic regimen post surgery. After the pump is removed it will terminate his relationship with our clinic. He rates his pain today an 8 out of 10. Physical Exam General: Alert and oriented x3, no acute distress, pleasant and cooperative, [on room air] Lungs: Resps E/U, Symmetrical chest expansion, Eyes: PERRL Musculoskeletal: Flexion and extension of lumbar spine somewhat guarded secondary to pain, deep tendon reflexes normal, strength in upper and lower extremities [5/5], [abnormal gait noted] Neurological: speech clear, clinical data associate equal, no gross sensory deficits Procedure Details:: Informed consent was obtained and the risk and benefits of the procedure were explained to the patient. The patient was taken to the procedure room where noninvasive monitoring was placed including noninvasive blood pressure cuff and pulse oximeter. Patient's pump was interrogated and reprogrammed. The infusion rate was turned to minimal flow. The patient tolerated the procedure well. Plan and Disposition:: We will call in some Zofran for the patient. Patient is going to call us if he has any issues. Dr. Rain has reviewed this note and agrees with this plan of care. This note was dictated using voice recognition software and may contain errors or omissions
--- NOTE | 2019-06-10 14:14 | P.PCN_ITS ---
- Procedure Date: 06/10/19 Time: 14:11 Anesthesiologist:: Sheryl De lToro APRN Complications:: None Pre-procedure Diagnosis:: Postlaminectomy syndrome, degenerative disc disease lumbar spine with lumbar radiculopathy Post-procedure Diagnosis:: Same Indications for Procedure:: Patient is a pleasant 49-year-old white male who presents today for intrathecal pain pump adjustment. We are turning his infusion to minimal flow today. Patient states that Dr. Torres is promised him to take away all of his pain after surgery. Patient and I have had multiple long discussion in regards to this. He wants to continue to wean the pump and have it removed by Dr. Torres on July 02. We will not be supplementing any oral narcotic medications nor will we continue him on oral narcotic regimen post surgery. After the pump is removed it will terminate his relationship with our clinic. He rates his pain today an 8 out of 10. Physical Exam General: Alert and oriented x3, no acute distress, pleasant and cooperative, [on room air] Lungs: Resps E/U, Symmetrical chest expansion, Eyes: PERRL Musculoskeletal: Flexion and extension of lumbar spine somewhat guarded secondary to pain, deep tendon reflexes normal, strength in upper and lower extremities [5/5], [abnormal gait noted] Neurological: speech clear, netbackup administrator equal, no gross sensory deficits Procedure Details:: Informed consent was obtained and the risk and benefits of the procedure were explained to the patient. The patient was taken to the procedure room where noninvasive monitoring was placed including noninvasive blood pressure cuff and pulse oximeter. Patient's pump was interrogated and reprogrammed. The infusion rate was turned to minimal flow. The patient tolerated the procedure well. Plan and Disposition:: We will call in some Zofran for the patient. Patient is going to call us if he has any issues. Dr. Rain has reviewed this note and agrees with this plan of care. This note was dictated using voice recognition software and may contain errors or omissions
== END ==
PROVIDERS: PCP Family Medicine; Visit Provider Clinical Nurse Specialist Family Health
DX: M96.1 Postlaminectomy syndrome, not elsewhere classified (principal); M51.16 Intervertebral disc disorders with radiculopathy, lumbar region
CPT/HCPCS: 62368

== ENCOUNTER → 2019-10-28 13:42 | Outpatient (CLI) | payer MEDICARE, SELFPAY ==
--- NOTE | 2019-10-28 13:45 | ECG_ITS ---
APPROVED REPORT Exam: Resting ECG HR:76 bpm ECG Measurements Heart Rate 76 AXES GA 170 P 47 QRSd 92 QRS 26 QT 384 T 32 QTc 432 <Conclusion> Normal sinus rhythm Normal ECG Electronically signed by : Tyler Almanza, 10/28/2019 17:47:07
== END ==
PROVIDERS: PCP Family Medicine; Visit Provider Surgery
DX: K81.1 Chronic cholecystitis (principal)
CPT/HCPCS: 93005

== ENCOUNTER → 2020-04-03 13:51 | Outpatient (CLI) | payer MEDICARE, SELFPAY ==
[2020-04-03 15:20] LABS: Coronavirus 19 IgG Antibody Negative (Negative); Coronavirus 19 IgM Antibody Negative (Negative)
== END ==
PROVIDERS: Visit Provider Internal Medicine Gastroenterology
DX: Z01.818 Encounter for other preprocedural examination (principal)
CPT/HCPCS: 36415; 86328

== ENCOUNTER 2020-04-06 11:51 | Day surgery (SDC) | payer MEDICARE, SELFPAY ==
[2020-04-01 11:42] VITALS: BMI 46.2
[2020-04-06 13:03] VITALS: BP 127/73; PULSE 68; RESP 18; TEMP 36.6; O2SAT 97
--- NOTE | 2020-04-06 13:46 | P.PN_ITS ---
[facility] Anesthesia Checklist - Patient Identification Patient Identification: Arm Band, Verbal (Name & ) - Structural Data Admitted From: Home Planned Operative Procedure/s: colon Consent for Planned Operative Procedure(s) Verified: Yes Verified Documents: History and Physical - NPO Status Verified Time NPO: 00:00 - Chart Verification Results Verified: CBC, BMP - Additional verifications Patient : No Anesthesia Reactions: No Hx Blood Transfusions: No Blood Transfusion Reaction: No Cephalosporin Allergy: No Previous Colonoscopy: No - Cardiovascular Assessment Heart Sounds: S1 & S2 Pulse Strength: Baseline Pulse Rhythm: Regular Peripheral Edema: No - Airway Assessment C-Spine Mobility Assessed: Yes TMJ Mobility Assessed: Yes Dentition: Good Dentition - Neurological Assessment Level of Consciousness: Awake, Alert, Appropriate Hx Seizures: No Numbness or tingling in extremities: No - Anesthesia Plan Anesthesia Risk discussed: Yes Anesthesia Plan: Verified ASA Class: III Anesthesia Type: MAC [facility] History I have reviewed the patient's past medical history: Yes Medical History: Reports:: Deep Vein Thrombosis, Hypertension Denies:: Cancer, Diabetes Mellitus Type 1, Diabetes Mellitus Type 2, Internal Pacemaker, MRSA, Seizures *Have you ever received a pneumonia vaccine?: No *Have you received a flu vaccine this season?: Yes Other Medical History: Reports: Hypothyroidism, Thyroid Disease, Other. Denies: Blood Transfusion Reaction Anesthesia experience/problems:: none Laterality Cases: Left: Other Other Surgeries: Yes: No Previous Surgery, Cholecystectomy, Other. No: Pacemaker Amputation: No Fractures: Yes (back surgrey x7) - *Social History Last grade of school completed: High school graduate Smoking Status: Never smoker # Packs/Day (cigarettes): 1 Alcohol Intake: never Alcohol Intake Frequency:: a few times a month Substance Use Type: denies use *Occupational Status:: disabled Housing: house Household Members: spouse *Travel in the last 8 weeks: None Family Hx:: Cancer, Hyperlipidemia, Diabetes, Heart Attack, Hypertension, Stroke
[2020-04-06 14:05] VITALS: O2SAT 97
--- NOTE | 2020-04-06 14:29 | HMH.PROC ---
[facility] Procedure Note Procedure Note:: Colonoscopy Procedure Report: Colonoscopy with cold snare polypectomy Endoscopist: Shelton Hirsch II, MD Referring physician: Isaac Lerma MD/Roberto Fowler MD Date of Procedure: April 06, 2020 Equipment: Olympus 180 variable stiffness pediatric colonoscope Sedation: MAC sedation Indication: Mr. Medeiros is a 50-year-old gentleman who is here for initial screening colonoscopy. He reports no abdominal pain, weight loss, change in his bowel habits or rectal bleeding. He reports no family history of colon cancer. Procedure: Prior to the procedure, a history and physical exam was performed, and patient's medications and allergies were reviewed. The risks, benefits and alternatives of the sedation and procedure were discussed with the patient. All questions were answered and informed consent was obtained. The patient was brought to the procedure room. Patient identification and proposed procedure were verified by the physician and the nurse. The patient was placed in a left lateral decubitus position and the scope was passed under direct vision. Throughout the procedure, the patient's blood pressure, pulse, and oxygen saturations were monitored continuously. The colonoscopy was accomplished without difficulty. The patient tolerated the procedure well. Findings: On digital rectal examination there was normal rectal tone. There were no external hemorrhoids. The prostate was moderately firm especially along the lower margin. The colonoscope was introduced through the anal canal to the rectum and advanced to the cecum. The ileocecal valve and appendiceal orifice were identified. The scope was advanced a short distance into the ileum which appeared grossly normal. The scope was then withdrawn into the colon. The cecum and ascending colon were normal. There was a 3 to 4 mm polyp in the transverse colon removed via cold snare polypectomy. The remainder of the descending, sigmoid and rectum were grossly normal. There were no other mucosal abnormalities. Upon retroflexion within the rectum there were grade 1-2 internal hemorrhoids.The preparation was excellent throughout with [place] Preparation Score of 9. The cecal time was 10 minutes. Impression: 1. Diminutive transverse colon polyp 2. Grade 1-2 internal hemorrhoids Plan: I will follow up the polyp pathology and recommend repeat colonoscopy again in 7-10 years based upon the polyp histology. I would encourage fiber supplementation on a long-term daily maintenance basis.
[2020-04-06 14:32] VITALS: BP 106/64; PULSE 69; RESP 18; TEMP 37; O2SAT 95
[2020-04-06 14:42] VITALS: BP 95/65; PULSE 79; RESP 18; O2SAT 98
[2020-04-06 14:52] VITALS: BP 118/73; PULSE 66; RESP 18; O2SAT 98
[2020-04-06 15:07] VITALS: BP 116/74; PULSE 69; RESP 18; O2SAT 99
== END 2020-04-06 15:15 | disposition home or self-care (01) ==
LOC: OUTP 11:52
PROVIDERS: PCP Family Medicine; Visit Provider Internal Medicine Gastroenterology
PROC: 0DJD8ZZ Inspection of Lower Intestinal Tract, Via Natural or Artificial Opening Endoscopic (ICD-10-PCS; CPT 45378; principal; 2020-04-06 13:30)
DX: Z12.11 Encounter for screening for malignant neoplasm of colon (principal); K63.5 Polyp of colon; K64.0 First degree hemorrhoids; I10 Essential (primary) hypertension; G47.33 Obstructive sleep apnea (adult) (pediatric); E03.9 Hypothyroidism, unspecified; Z96.89 Presence of other specified functional implants; Z88.0 Allergy status to penicillin; Z88.1 Allergy status to other antibiotic agents; I82.409 Acute embolism and thrombosis of unspecified deep veins of unspecified lower extremity; Z80.9 Family history of malignant neoplasm, unspecified; Z83.3 Family history of diabetes mellitus; Z82.3 Family history of stroke
CPT/HCPCS: 45385; 88305

== ENCOUNTER 2020-10-20 19:27 | Emergency (ER) | payer MEDICARE, SELFPAY ==
[2020-10-20 19:40] VITALS: BP 135/79; PULSE 76; RESP 14; TEMP 37.4; O2SAT 94; BMI 44.9
--- NOTE | 2020-10-20 20:26 | HMH.EDUTC ---
[facility] [place] Impression: Viral syndrome, Bronchitis Disposition: Home, Self-Care Condition on Discharge: Good Instructions: DI for COVID-19 (Suspected or Confirmed ), Preventing the Spread of Coronavirus Discharge Instructions Additional Instructions: Drink plenty of fluids. Take tylenol or ibuprofen for pain or fever. Take the medications as directed. Follow up with your regular doctor. GO TO THE ER FOR ANY WORSENING SYMPTOMS Prescriptions: Ondansetron [Zofran 4mg ODT] 4 mg PO Q8HP PRN #12 tab.rapdis PRN Reason: Nausea Transmission Status: Received by [facility] #[id number] Azithromycin [Z-Humberto 250mg Tab*] 250 mg PO UD DOSE PK #6 tab Transmission Status: Received by [facility] #[id number] Referrals: Oliver Lerma MD [Primary Care Provider] - Time of Disposition: 20:27 Medical Decision Making - Medical Records Medical records reviewed: No: I reviewed the patient's medical records. - Anthony Inquiry Pt receiving controlled substance: No Vital Signs: 10/20/20 19:40 10/20/20 20:37 Temperature 99.3 F 99.3 F Temperature Source Oral Pulse Rate 76 Pulse Rate [Right Brachial] 76 Respiratory Rate 14 14 Blood Pressure 135/79 Blood Pressure [Right Arm] 135/79 Blood Pressure Mean [Right Arm] 97 Blood Pressure Source [Right Arm] Automatic Cuff Blood Pressure Position [Right Arm] Sitting 02 Sat by Pulse Oximetry 94 L Oxygen Delivery Method Room Air Orders (Tests/Meds): ORDERS Category Date Time Status Covid-19 Nasal PCR Sendout P&C Routine Lab 10/20/20 19:45 [place] [facility] [place] - General Stated complaint: covid test Time Seen by Provider: 10/20/20 20:00 Mode of Arrival: Ambulatory Source of Information: Patient Limitations: No Limitations Description of Symptoms (Recalled from Triage Doc. by RN): COVID TEST D/T EXPOSURE. C/O HEADACHE, COUGH, SORE THROAT, SOA, AND LOSS OF TASTE/SMELL HEENT Symptoms (Recalled from RN notes): Yes Resp Symptoms (Recalled from RN notes): Yes Skin Symptoms (Recalled from RN notes): No MS Symptoms (Recalled from RN notes): No Functional Status (Recalled from RN notes): WNL - History of Present Illness Provider Complaint: He is here needing a covid test. He states that since yesterday he has had a cough, chest congestion and malaise. - Related Data Home Medications Medication Instructions Recorded Confirmed Losartan Potassium 100 mg PO DAILY 11/09/19 04/06/20 Metoprolol Succinate 50 mg PO DAILY 11/09/19 04/06/20 levofloxacin 750 mg tablet 750 mg PO DAILY 02/06/20 04/06/20 levothyroxine 150 mcg tablet 150 mcg PO DAILY 02/06/20 04/06/20 losartan 100 mg tablet 100 mg PO DAILY 02/06/20 04/06/20 metoprolol succinate 50 mg 50 mg PO DAILY 02/06/20 04/06/20 tablet,extended release 24 hr tamsulosin 0.4 mg capsule 0.4 ea PO DAILY 02/06/20 04/06/20 triamterene 37.5 1 tab PO DAILY 02/06/20 04/06/20 mg-hydrochlorothiazide 25 mg tablet Aspirin [Aspir 81] 81 mg PO DAILY 04/01/20 04/06/20 Sulfamethoxazole/Trimethoprim 1 each PO BID 04/01/20 04/06/20 [Bactrim DS tablet] Previous Rx's Medication Instructions Recorded Hydrocod/Acet 5/325 mg [[place] 1 - 2 tab PO Q6HP PRN #13 tab 11/09/19 5/325mg tablet] Azithromycin [Z-Humberto 250mg Tab*] 250 mg PO UD DOSE PK #6 tab 10/20/20 Ondansetron [Zofran 4mg ODT] 4 mg PO Q8HP PRN #12 tab.rapdis 10/20/20 Allergies Allergy/AdvReac Type Severity Reaction Status Date / Time Penicillins Allergy Unknown Verified 04/06/20 13:02 amoxicillin Allergy Verified 04/06/20 13:02 - Worker's Comp Is this a Worker's Comp case?: No H History - Hepatitis A Screen Drug use history?: No High risk sexual behaviors?: No History of sexually transmitted infection?: No Currently employed?: No Childcare worker?: No Do you have indoor plumbing?: Yes Do you have electricity?: Yes Attestation statement:: This patient has been screened for Hepatitis A risk factors. I have reviewed
[2020-10-20 20:37] VITALS: BP 135/79; PULSE 76; RESP 14; TEMP 37.4; O2SAT 94
[2020-10-22 08:16] LABS: Covid-19 Nasal PCR Sendout P&C Negative
== END 2020-10-20 20:40 | disposition home or self-care (01) ==
PROVIDERS: Emergency Provider Nurse Practitioner Family; PCP Family Medicine
DX: Z20.822 Contact with and (suspected) exposure to COVID-19 (principal); J20.9 Acute bronchitis, unspecified; B34.9 Viral infection, unspecified; I10 Essential (primary) hypertension; E03.9 Hypothyroidism, unspecified; Z79.899 Other long term (current) drug therapy; Z88.0 Allergy status to penicillin
CPT/HCPCS: G0463; 99202; U0004

== ENCOUNTER → 2021-03-04 10:16 | Outpatient (CLI) | payer MEDICARE, SELFPAY ==
--- NOTE | 2021-03-04 10:23 | XR_ITS ---
PROCEDURE: XR LUMBAR SPINE MIN 4V CLINICAL INDICATION: FALL,INJURY,P/O PULLED MUSCLE COMPARISON: No exams were available for comparison FINDINGS: Prior posterior fusion at L4-L5 S1 and S2. There is good alignment. There is decrease in the disc space at L4-5 and L5-S1. The screws at S2 extend into the sacrum and ilium in an oblique fashion. Prior laminectomy noted at L4-L5 and S1. No acute fracture or dislocation. There is mild degenerative disc disease at T12-L1. No lytic or blastic change. IMPRESSION: Postsurgical changes with good alignment. No acute fracture Dictated by: German Marroquin MD 03/04/2021 11:57 German Marroquin MD in OV 03/04/2021 11:57
== END ==
PROVIDERS: PCP Family Medicine; Visit Provider Family Medicine
DX: S39.012A Strain of muscle, fascia and tendon of lower back, initial encounter (principal)
CPT/HCPCS: 72110

== ENCOUNTER → 2021-12-17 14:28 | Outpatient (CLI) | payer MEDICARE, SELFPAY ==
[2021-12-17 17:13] LABS: Blood Urea Nitrogen 13 mg/dl (9-20); Estimated Glomerular Filt Rate 141 ml/min (>60); GFR (African American) 171 ML/MIN (>60)
== END ==
PROVIDERS: Visit Provider Internal Medicine Cardiovascular Disease
DX: Z01.812 Encounter for preprocedural laboratory examination (principal); R07.89 Other chest pain
CPT/HCPCS: 36415; 82565; 84520

== ENCOUNTER → 2021-12-24 12:41 | Outpatient (CLI) | payer MEDICARE, SELFPAY ==
--- NOTE | 2021-12-24 12:43 | CA_ITS ---
FINAL REPORT TECHNIQUE: Color Doppler, duplex Doppler and sands scale sonography of the bilateral neck arterial vasculature was performed. Velocities were measured in the carotid arteries. Stenosis evaluation based on the validated velocity criteria. CLINICAL HISTORY: dizziness, HTN FINDINGS: The peak systolic velocity of the right common carotid artery is 129 cm/s. The peak systolic velocity of the right internal carotid artery is 111 cm/s and end diastolic velocity 39 cm/s. A mild amount of plaque is present. The right external carotid artery is patent. The right vertebral artery is patent with antegrade flow. ICA/CCA ratio: 1.03 The peak systolic velocity of the left common carotid artery is 147 cm/s. The peak systolic velocity of the left internal carotid artery is 97 cm/s and end diastolic velocity 45 cm/s. A mild amount of plaque is present. The left external carotid artery is patent.The left vertebral artery is patent with antegrade flow. ICA/CCA ratio: 0.75 IMPRESSION: Less than 50% bilateral carotid stenoses. Bilateral patent vertebral arteries with antegrade flow. If indicated, CTA or MRA could further evaluate. Reviewed, Interpreted and Dictated by Edwin Cano III, MD Transcribed by Wilmer Ghosh Authenticated by Edwin Cano III, MD on 12/24/2021 03:33:[address] [facility]
--- NOTE | 2021-12-24 12:47 | CT_ITS ---
FINAL REPORT CLINICAL HISTORY: chest pain FINDINGS: Thin section axial CT images of the chest were obtained with contrast. 3D reformatted images were also obtained. This study was performed with techniques to keep radiation doses as low as reasonably achievable (ALARA). Individualized dose reduction techniques using automated exposure control or adjustment of mA and/or kV according to the patient''s size were employed. There is no evidence of pulmonary embolism. There is no evidence of thoracic aortic aneurysm or dissection. There is no evidence of mediastinal or hilar mass or adenopathy. There is no evidence of pulmonary mass or nodule. No localized inflammatory process is seen within the lungs. Limited images of the upper abdomen are unremarkable. IMPRESSION: No evidence of pulmonary embolism. No mass or localized inflammatory process. Reviewed, Interpreted and Dictated by Edwin Cano III, MD Transcribed by Otilia Turner Authenticated by Edwin Cano III, MD on 12/24/2021 02:19:56 PM [facility]
== END ==
PROVIDERS: PCP Family Medicine; Visit Provider Internal Medicine Cardiovascular Disease
DX: G47.33 Obstructive sleep apnea (adult) (pediatric) (principal); I10 Essential (primary) hypertension; R06.00 Dyspnea, unspecified; R07.9 Chest pain, unspecified; R42 Dizziness and giddiness; R94.39 Abnormal result of other cardiovascular function study; Z99.89 Dependence on other enabling machines and devices; I65.23 Occlusion and stenosis of bilateral carotid arteries
CPT/HCPCS: 71275; 93880; Q9967

== ENCOUNTER → 2022-03-09 10:12 | Outpatient (CLI) | payer MEDICARE, SELFPAY ==
--- NOTE | 2022-03-09 10:16 | XR_ITS ---
FINAL REPORT CLINICAL HISTORY: pain, cellulitis FINDINGS: RIGHT FOOT: Three views of the right foot were obtained. There is no acute fracture or dislocation. There are mild degenerative changes. There are calcaneal spurs. There is soft tissue swelling of the great toe with a possible soft tissue defect. IMPRESSION: Soft tissue swelling of the great toe with a possible soft tissue defect. Mild degenerative change. Reviewed, Interpreted and Dictated by Edwin Cano III, MD Transcribed by Wilmer Ghosh Authenticated and [facility]
[2022-03-09 10:43] LABS: Basophils # 0.2 K/mm3 (0-0.2); Basophils % 1.6 % (0.1-2.0); Eosinophils # 0.2 K/mm3 (0.0-0.4); Eosinophils % 1.8 % (0.1-12.0); Hematocrit 40.9 % (42.0-52.0); Hemoglobin 13.7 g/dL (14.1-18.0); Lymphocytes # 3.3 K/mm3 (0.7-4.5); Lymphocytes % 31.9 % (10-50); Mean Corpuscular HGB Conc 33.4 g/dL (31.8-35.4); Mean Corpuscular Hemoglobin 30.4 pg (27.0-31.2); Mean Corpuscular Volume 90.8 fl (80-94); Mean Platelet Volume 8.2 fl (7.4-10.4); Monocytes # 0.5 K/mm3 (0.1-1.0); Neutrophils # 6.1 K/mm3 (1.8-7.8); Neutrophils % 59.6 % (37.0-80.0); Platelet Count 341 K/mm3 (142-424); White Blood Count 10.2 K/mm3 (4.8-10.8)
[2022-03-09 11:11] LABS: Chloride 99 mmol/L (98-107); Potassium 4.4 mmoL/L (3.5-5.1); Sodium 134 mmol/L (136-145)
[2022-03-09 11:13] LABS: Blood Urea Nitrogen 15 mg/dl (9-20); Estimated Glomerular Filt Rate 141 ml/min (>60); GFR (African American) 171 ML/MIN (>60)
[2022-03-09 11:14] LABS: Alanine Aminotransferase 70 U/L (12-78); Albumin Level 4.4 g/dl (3.5-5.0); Albumin/Globulin Ratio 1.3 (1.1-1.8); Alkaline Phosphatase 136 U/L (38-126); Anion Gap 15.4 mEq/L (5-15); Aspartate Amino Transferase 113 U/L (17-59); Bilirubin,Total 0.5 mg/dl (0.2-1.3); Calcium 10.1 mg/dl (8.4-10.2); Carbon Dioxide 24 mmol/L (22.0-30.0); Globulin 3.3 g/dL (1.3-3.2); Glucose 319 mg/dl (74-100); Total Protein,Serum 7.7 g/dl (6.3-8.2)
[2022-03-09 12:53] LABS: Erythrocyte Sedimentation Rate 63 mm/hr (0-20)
[2022-03-09 15:22] LABS: Hemoglobin A1C 12.4 % (4.0-6.0)
== END ==
PROVIDERS: PCP Family Medicine; Visit Provider Nurse Practitioner Family
DX: Z51.89 Encounter for other specified aftercare (principal); B34.9 Viral infection, unspecified; R73.9 Hyperglycemia, unspecified; B95.2 Enterococcus as the cause of diseases classified elsewhere; B95.7 Other staphylococcus as the cause of diseases classified elsewhere
CPT/HCPCS: 36415; 73630; 80053; 83036; 85025; 85651; 86140; 87070; 87077; 87186; 87205

== ENCOUNTER → 2022-05-24 06:12 | Outpatient (CLI) | payer MEDICARE, SELFPAY | PROVIDERS: PCP Family Medicine; Visit Provider Nurse Practitioner Family | DX: E11.621 Type 2 diabetes mellitus with foot ulcer (principal); L97.519 Non-pressure chronic ulcer of other part of right foot with unspecified severity; Z51.89 Encounter for other specified aftercare; Z79.84 Long term (current) use of oral hypoglycemic drugs | CPT/HCPCS: 87070; 87205 ==

== ENCOUNTER → 2022-06-10 12:47 | Outpatient (CLI) | payer MEDICARE, SELFPAY ==
[2022-06-10 19:37] LABS: Anion Gap 17.7 mEq/L (5-15); Blood Urea Nitrogen 9 mg/dl (9-20); Calcium 8.8 mg/dl (8.4-10.2); Carbon Dioxide 22 mmol/L (22.0-30.0); Chloride 102 mmol/L (98-107); Estimated Glomerular Filt Rate 141 ml/min (>60); GFR (African American) 171 ML/MIN (>60); Glucose 90 mg/dl (74-100); Potassium 3.7 mmoL/L (3.5-5.1); Sodium 138 mmol/L (136-145)
== END ==
PROVIDERS: PCP Family Medicine; Visit Provider Family Medicine
DX: E11.9 Type 2 diabetes mellitus without complications (principal); Z79.84 Long term (current) use of oral hypoglycemic drugs
CPT/HCPCS: 80048

== ENCOUNTER → 2022-06-28 07:58 | Outpatient (CLI) | payer MEDICARE, SELFPAY ==
--- NOTE | 2022-06-28 08:03 | XR_ITS ---
FINAL REPORT CLINICAL HISTORY: pain, swelling, diabetic ulcer with pain COMPARISON: March 09, 2022 FINDINGS: RIGHT FOOT Three views of the right foot demonstrate no acute fracture or dislocation. The visualized joint spaces are normally aligned. There are mild degenerative changes. There are calcaneal spurs. No acute bony erosion is present. The soft tissues are unremarkable. IMPRESSION: No acute bony abnormality. Reviewed, Interpreted and Dictated by Edwin Cano III, MD Transcribed by Kalli Strong Authenticated and [facility]
[2022-06-28 09:15] LABS: Basophils # 0.1 K/mm3 (0-0.2); Basophils % 1.2 % (0.1-2.0); Eosinophils # 0.3 K/mm3 (0.0-0.4); Eosinophils % 2.8 % (0.1-12.0); Hemoglobin 13.7 g/dL (14.1-18.0); Lymphocytes # 3.5 K/mm3 (0.7-4.5); Lymphocytes % 35.5 % (10-50); Mean Corpuscular HGB Conc 31.9 g/dL (31.8-35.4); Mean Corpuscular Hemoglobin 29.8 pg (27.0-31.2); Mean Corpuscular Volume 93.4 fl (80-94); Mean Platelet Volume 7.4 fl (7.4-10.4); Monocytes # 0.6 K/mm3 (0.1-1.0); Neutrophils # 5.4 K/mm3 (1.8-7.8); Neutrophils % 54.6 % (37.0-80.0); Platelet Count 389 K/mm3 (142-424); Red Cell Distribution Width 14.2 % (11.5-17.5); White Blood Count 9.9 K/mm3 (4.8-10.8)
[2022-06-28 10:52] LABS: Erythrocyte Sedimentation Rate 75 mm/hr (0-20)
[2022-06-28 12:23] LABS: Chloride 100 mmol/L (98-107); Potassium 4.5 mmoL/L (3.5-5.1); Sodium 142 mmol/L (136-145)
[2022-06-28 12:26] LABS: Alanine Aminotransferase 47 U/L (12-78); Albumin Level 4.5 g/dl (3.5-5.0); Albumin/Globulin Ratio 1.4 (1.1-1.8); Alkaline Phosphatase 90 U/L (38-126); Anion Gap 20.5 mEq/L (5-15); Aspartate Amino Transferase 70 U/L (17-59); Bilirubin,Total 0.3 mg/dl (0.2-1.3); Blood Urea Nitrogen 16 mg/dl (9-20); Calcium 9.7 mg/dl (8.4-10.2); Carbon Dioxide 26 mmol/L (22.0-30.0); Estimated Glomerular Filt Rate 141 ml/min (>60); GFR (African American) 171 ML/MIN (>60); Globulin 3.3 g/dL (1.3-3.2); Glucose 133 mg/dl (74-100); Total Protein,Serum 7.8 g/dl (6.3-8.2)
== END ==
PROVIDERS: PCP Family Medicine; Visit Provider Podiatrist
DX: E11.621 Type 2 diabetes mellitus with foot ulcer (principal); L89.891 Pressure ulcer of other site, stage 1; L97.519 Non-pressure chronic ulcer of other part of right foot with unspecified severity; M19.071 Primary osteoarthritis, right ankle and foot; Z79.84 Long term (current) use of oral hypoglycemic drugs
CPT/HCPCS: 36415; 73630; 80053; 85025; 85651; 86140

== ENCOUNTER → 2022-07-18 09:40 | Outpatient (CLI) | payer MEDICARE, SELFPAY ==
[2022-07-18 10:50] LABS: Blood Urea Nitrogen 10 mg/dl (9-20); Estimated Glomerular Filt Rate 174 ml/min (>60); GFR (African American) 210 ML/MIN (>60)
== END ==
PROVIDERS: PCP Family Medicine; Visit Provider Podiatrist
DX: L89.891 Pressure ulcer of other site, stage 1 (principal)
CPT/HCPCS: 36415; 82565; 84520

== ENCOUNTER 2022-07-20 12:09 | Emergency (ER) | payer MEDICARE, SELFPAY ==
--- NOTE | 2022-07-20 12:13 | EXP.UTC ---
Discharge Plan Disposition Patient Disposition: Home, Self-Care Condition: Good Prescriptions Prescriptions: New azithromycin [Zithromax] 250 mg tablet 250 mg PO UD DOSE PK Qty: 6 0RF Rx Instructions: Take two (2) tablets today, then one (1) tablet days #2 thru #5 benzonatate [benzonatate] 100 mg capsule 100 mg PO TIDP PRN (Reason: Cough) Qty: 30 0RF ondansetron 4 mg Tablet,Disintegrating 4 mg PO Q8H PRN (Reason: Nausea) Qty: 12 0RF No Action triamterene-hydrochlorothiazid 37.5-25 mg tablet 0.5 tab PO DAILY Qty: 90 1RF metoprolol succinate 50 mg tablet extended release 24 hr 50 mg PO DAILY Qty: 90 1RF losartan 100 mg tablet 100 mg PO DAILY Qty: 90 1RF metformin 500 mg tablet 500 mg PO BID Qty: 180 3RF (DME) blood-glucose meter Kit See Rx Instructions .Route Qty: 1 0RF Rx Instructions: Check blood sugar daily Jardiance 10 mg tablet 10 mg PO DAILY Qty: 90 1RF (DME) Blood Glucose Test Strip See Rx Instructions .ROUTE .MEDSUPPLY Qty: 50 12RF Rx Instructions: TEST SUGAR DAILY glimepiride 2 mg tablet 2 mg PO DAILY Qty: 90 3RF hydrochlorothiazide 25 mg tablet 25 mg PO DAILY Qty: 90 2RF levothyroxine 175 mcg tablet 175 mcg PO DAILY Qty: 90 2RF omeprazole 40 mg capsule,delayed release(DR/EC) 40 mg PO QDAY Qty: 90 1RF Rx Instructions: swallow whole; do not crush, chew, dissolve, or cut/break oxybutynin chloride 10 mg tablet extended release 24hr 10 mg PO DAILY Qty: 90 1RF Referrals Follow up/Referrals: Oliver Lerma MD [Primary Care Provider] - See instructions Activity Restrictions/Add. Instructions Additional Instructions/Restrictions: Drink plenty of fluids. Take tylenol or ibuprofen for pain or fever. Take the medications as directed. Follow up with your regular doctor. GO TO THE ER FOR ANY WORSENING SYMPTOMS Quarantine until you know the results of your covid-19 test. Notify your school or workplace of your results and follow their instructions regarding return to work/school. Clinical Impressions Clinical Impression: Viral syndrome, Bronchitis Stand Alone Forms Stand Alone Forms: Work/School Release Instructions Patient Instructions: DI for Acute Bronchitis, Coronavirus Disease 2019, Preventing the Spread of Coronavirus Discharge Instructions [place]charge ED Provider[place] Flore[place]io [place] [facility] [place] General Stated complaint: Chills, fever, MEJIAS, BA, SOA Time Seen by Provider: 07/20/22 12:13 History of Present Illness Provider Complaint: HE States that for the past 4 days he has had sore throat, chills, body aches and he has felt bad. Related Data Previous Rx's Medication Instructions Recorded losartan 100 mg tablet 100 mg PO DAILY blood pressure #90 04/19/22 tabs metformin 500 mg tablet 500 mg PO BID #180 tabs 04/19/22 metoprolol succinate 50 mg 50 mg PO DAILY heart #90 tabs 04/19/22 tablet,extended release 24 hr triamterene 37.5 0.5 tab PO DAILY hypertension #90 04/19/22 mg-hydrochlorothiazide 25 mg tablet tabs blood-glucose meter #1 ea 04/28/22 blood sugar diagnostic (Blood #50 ea 07/05/22 Glucose Test strips) empagliflozin 10 mg tablet 10 mg PO DAILY #90 tabs 07/05/22 (Jardiance) glimepiride 2 mg tablet 2 mg PO DAILY #90 tabs 07/05/22 hydrochlorothiazide 25 mg tablet 25 mg PO DAILY #90 tabs 07/05/22 levothyroxine 175 mcg tablet 175 mcg PO DAILY #90 tabs 07/05/22 omeprazole 40 mg capsule,delayed 40 mg PO QDAY #90 caps 07/05/22 release oxybutynin chloride 10 mg 10 mg PO DAILY #90 tabs 07/05/22 tablet,extended release 24 hr azithromycin 250 mg tablet 250 mg PO UD DOSE PK #6 tabs 07/20/22 (Zithromax) benzonatate 100 mg capsule 100 mg PO TIDP PRN Cough #30 caps 07/20/22 ondansetron 4 mg disintegrating 4 mg PO Q8H PRN Nausea #12 tabs 07/20/22 tablet Allergies Allergy/AdvReac Type Severity Reaction Status Date / Time Penicillins Allergy Unknown Veri
[2022-07-20 12:31] VITALS: BP 117/79; PULSE 100; RESP 20; TEMP 37.9; O2SAT 95; BMI 42.3
[2022-07-20 12:37] LABS: UTC Influenza A Antigen Negative (Negative); UTC Influenza B Antigen Negative (Negative)
[2022-07-20 13:56] VITALS: BP 120/84; PULSE 89; RESP 20; TEMP 37.8; O2SAT 96
== END 2022-07-20 13:57 | disposition home or self-care (01) ==
PROVIDERS: Emergency Provider Nurse Practitioner Family; PCP Family Medicine
DX: J40 Bronchitis, not specified as acute or chronic (principal)
CPT/HCPCS: 87804; 99212; C9803; G0463; U0003; U0005

== ENCOUNTER → 2022-07-22 08:03 | Outpatient (CLI) | payer MEDICARE, SELFPAY ==
--- NOTE | 2022-07-22 08:03 | MR_ITS ---
FINAL REPORT CLINICAL HISTORY: non healing ulcer great toe x4 months FINDINGS: Multiplanar MR imaging of the right foot was performed with and without contrast. There is mild bone marrow edema in the 1st distal phalanx. There is no evidence of marrow replacement to suggest osteomyelitis. No fracture is identified. There is soft tissue edema or inflammation involving the medial great toe with contrast enhancement. No fluid collection is seen to suggest an abscess. IMPRESSION: Bone marrow edema in the 1st distal phalanx. No evidence to suggest osteomyelitis. Edema or cellulitis of the great toe. No fluid collection to suggest abscess. Reviewed, Interpreted and Dictated by Edwin Cano III, MD Transcribed by Otilia Turner Authenticated and . [facility]
== END ==
PROVIDERS: PCP Family Medicine; Visit Provider Podiatrist
DX: E11.621 Type 2 diabetes mellitus with foot ulcer (principal); L89.891 Pressure ulcer of other site, stage 1; L97.519 Non-pressure chronic ulcer of other part of right foot with unspecified severity; Z79.84 Long term (current) use of oral hypoglycemic drugs
CPT/HCPCS: 73720; A9576

== ENCOUNTER → 2022-09-23 12:40 | Outpatient (CLI) | payer MEDICARE, SELFPAY ==
[2022-09-23 18:31] LABS: Adenovirus,PCR Not Detected (NotDetected); Bordetella Pertussis Not Detected (NotDetected); Chlamydophila Pneumoniae, PCR Not Detected (NotDetected); Coronavirus 229E Not Detected (NotDetected); Coronavirus NL63 Not Detected (NotDetected); Coronavirus OC43 Not Detected (NotDetected); Coronovirus HKU1,PCR Not Detected (NotDetected); Human Metapneumovirus Not Detected (NotDetected); Influenza A, PCR Not Detected (NotDetected); Influenza AH1, 2009 Not Detected (NotDetected); Influenza AH1, PCR Not Detected (NotDetected); Influenza AH3,PCR Not Detected (NotDetected); Influenza B, PCR Not Detected (NotDetected); Mycoplasma Pneumoniae, PCR Not Detected (NotDetected); Parainfluenza 1, PCR Not Detected (NotDetected); Parainfluenza 2, PCR Not Detected (NotDetected); Parainfluenza 3, PCR Not Detected (NotDetected); Parainfluenza 4, PCR Not Detected (NotDetected); Respiratory Syncytial Virus Not Detected (NotDetected)
[2022-09-23 19:34] LABS: Basophils # 0.1 K/mm3 (0-0.2); Basophils % 0.7 % (0.1-2.0); Eosinophils # 0.2 K/mm3 (0.0-0.4); Eosinophils % 2.3 % (0.1-12.0); Hematocrit 39.5 % (42.0-52.0); Hemoglobin 13.2 g/dL (14.1-18.0); Lymphocytes # 1.2 K/mm3 (0.7-4.5); Lymphocytes % 16.5 % (10-50); Mean Corpuscular HGB Conc 33.4 g/dL (31.8-35.4); Mean Corpuscular Volume 89.7 fl (80-94); Mean Platelet Volume 8.1 fl (7.4-10.4); Monocytes # 0.5 K/mm3 (0.1-1.0); Monocytes % 7.3 % (1.7-9.3); Neutrophils # 5.3 K/mm3 (1.8-7.8); Neutrophils % 73.2 % (37.0-80.0); Platelet Count 316 K/mm3 (142-424); Red Cell Distribution Width 13.5 % (11.5-17.5); White Blood Count 7.2 K/mm3 (4.8-10.8)
[2022-09-23 20:38] LABS: Coronavirus 19, PCR Detected (NotDetected); Rhinovirus/Enterovirus Detected (NotDetected)
== END ==
PROVIDERS: PCP Family Medicine; Visit Provider Family Medicine
DX: T78.40XA Allergy, unspecified, initial encounter (principal); U07.1 COVID-19; B34.1 Enterovirus infection, unspecified
CPT/HCPCS: 85025; 87581; 87632; 87798; C9803; U0003; U0005

== ENCOUNTER → 2022-12-07 10:45 | Outpatient (CLI) | payer MEDICARE, SELFPAY ==
[2022-12-07 11:51] LABS: Basophils # 0.1 K/mm3 (0-0.2); Basophils % 1.5 % (0.1-2.0); Eosinophils # 0.2 K/mm3 (0.0-0.4); Eosinophils % 1.9 % (0.1-12.0); Hematocrit 44.7 % (42.0-52.0); Hemoglobin 14.7 g/dL (14.1-18.0); Lymphocytes # 2.9 K/mm3 (0.7-4.5); Lymphocytes % 31.5 % (10-50); Mean Corpuscular HGB Conc 32.9 g/dL (31.8-35.4); Mean Corpuscular Hemoglobin 29.9 pg (27.0-31.2); Mean Corpuscular Volume 90.8 fl (80-94); Mean Platelet Volume 7.8 fl (7.4-10.4); Monocytes # 0.5 K/mm3 (0.1-1.0); Monocytes % 5.2 % (1.7-9.3); Neutrophils # 5.4 K/mm3 (1.8-7.8); Neutrophils % 59.9 % (37.0-80.0); Platelet Count 353 K/mm3 (142-424); Red Blood Count 4.92 M/mm3 (4.60-6.20); Red Cell Distribution Width 13.8 % (11.5-17.5); White Blood Count 9.1 K/mm3 (4.8-10.8)
[2022-12-07 12:13] LABS: Alanine Aminotransferase 85 U/L (12-78); Albumin Level 4.8 g/dl (3.5-5.0); Albumin/Globulin Ratio 1.5 (1.1-1.8); Alkaline Phosphatase 129 U/L (38-126); Anion Gap 16.9 mEq/L (5-15); Aspartate Amino Transferase 112 U/L (17-59); Bilirubin,Total 0.6 mg/dl (0.2-1.3); Blood Urea Nitrogen 15 mg/dl (9-20); Calcium 9.5 mg/dl (8.4-10.2); Carbon Dioxide 24 mmol/L (22.0-30.0); Chloride 99 mmol/L (98-107); Estimated Glomerular Filt Rate 118 ml/min (>60); GFR (African American) 143 ML/MIN (>60); Globulin 3.3 g/dL (1.3-3.2); Glucose 191 mg/dl (74-100); Potassium 3.9 mmoL/L (3.5-5.1); Sodium 136 mmol/L (136-145); Total Protein,Serum 8.1 g/dl (6.3-8.2)
[2022-12-07 12:19] LABS: C-Reactive Protein 11.9 mg/L (0-4)
[2022-12-07 12:36] LABS: Erythrocyte Sedimentation Rate 43 mm/hr (0-20)
== END ==
PROVIDERS: PCP Family Medicine; Visit Provider Nurse Practitioner Family
DX: L97.511 Non-pressure chronic ulcer of other part of right foot limited to breakdown of skin (principal); T78.40XA Allergy, unspecified, initial encounter; B95.7 Other staphylococcus as the cause of diseases classified elsewhere; B96.4 Proteus (mirabilis) (morganii) as the cause of diseases classified elsewhere
CPT/HCPCS: 36415; 80053; 85025; 85651; 86140; 87070; 87077; 87186; 87205

== ENCOUNTER → 2023-01-10 09:07 | Outpatient (CLI) | payer MEDICARE, SELFPAY ==
--- NOTE | 2023-01-10 09:13 | XR_ITS ---
FINAL REPORT CLINICAL HISTORY: pre-op testing for sx on right 1st digit FINDINGS: Two views of the chest were obtained. The heart size and pulmonary vascularity are within normal limits. The mediastinum is normal. No acute pulmonary abnormality is identified. There is no pneumothorax. The bony thorax is intact. IMPRESSION: No active cardiopulmonary disease. Reviewed, Interpreted and Dictated by Edwin Cano III, MD Transcribed by Kalli Strong Authenticated and [facility]
--- NOTE | 2023-01-10 09:13 | XR_ITS ---
FINAL REPORT CLINICAL HISTORY: ulcer of right foot COMPARISON: 06/28/2022 FINDINGS: RIGHT FOOT Three views of the right foot demonstrate no acute fracture or dislocation. No bony erosion is identified. There are mild degenerative changes. There are calcaneal spurs. The soft tissues are unremarkable. IMPRESSION: Mild degenerative change with no acute bony abnormality. Reviewed, Interpreted and Dictated by Edwin Cano III, MD Transcribed by Kalli Strong Authenticated and [facility]
--- NOTE | 2023-01-10 10:09 | ECG_ITS ---
APPROVED REPORT Exam: Resting ECG HR:75 bpm ECG Measurements Heart Rate 75 AXES GA 190 P 11 QRSd 102 QRS 54 QT 385 T 9 QTc 414 Conclusion SINUS RHYTHM NONSPECIFIC T-WAVE ABNORMALITY BORDERLINE ECG UNCONFIRMED REPORT Electronically signed by : Alejandro Weinberg MD 01/13/2023 14:34:10
[2023-01-10 10:22] LABS: Basophils # 0.1 K/mm3 (0-0.2); Basophils % 1.1 % (0.1-2.0); Eosinophils # 0.4 K/mm3 (0.0-0.4); Eosinophils % 3.6 % (0.1-12.0); Hematocrit 45.8 % (42.0-52.0); Hemoglobin 14.6 g/dL (14.1-18.0); Lymphocytes # 3.6 K/mm3 (0.7-4.5); Lymphocytes % 31.7 % (10-50); Mean Corpuscular Hemoglobin 29.1 pg (27.0-31.2); Mean Corpuscular Volume 91.1 fl (80-94); Mean Platelet Volume 7.8 fl (7.4-10.4); Monocytes # 0.5 K/mm3 (0.1-1.0); Monocytes % 4.5 % (1.7-9.3); Neutrophils # 6.7 K/mm3 (1.8-7.8); Neutrophils % 59.1 % (37.0-80.0); Platelet Count 361 K/mm3 (142-424); Red Blood Count 5.02 M/mm3 (4.60-6.20); Red Cell Distribution Width 13.4 % (11.5-17.5); White Blood Count 11.3 K/mm3 (4.8-10.8)
[2023-01-10 10:36] LABS: Hemoglobin A1C 8.4 % (4.0-6.0)
[2023-01-10 11:16] LABS: Alanine Aminotransferase 73 U/L (12-78); Albumin Level 4.3 g/dl (3.5-5.0); Albumin/Globulin Ratio 1.3 (1.1-1.8); Alkaline Phosphatase 134 U/L (38-126); Anion Gap 16.9 mEq/L (5-15); Aspartate Amino Transferase 105 U/L (17-59); Bilirubin,Total 0.5 mg/dl (0.2-1.3); Blood Urea Nitrogen 15 mg/dl (9-20); Calcium 9.2 mg/dl (8.4-10.2); Carbon Dioxide 24 mmol/L (22.0-30.0); Chloride 101 mmol/L (98-107); Estimated Glomerular Filt Rate 118 ml/min (>60); GFR (African American) 143 ML/MIN (>60); Globulin 3.4 g/dL (1.3-3.2); Glucose 222 mg/dl (74-100); Potassium 3.9 mmoL/L (3.5-5.1); Sodium 138 mmol/L (136-145); Total Protein,Serum 7.7 g/dl (6.3-8.2)
[2023-01-10 11:21] LABS: C-Reactive Protein 14.5 mg/L (0-4)
[2023-01-10 12:54] LABS: Erythrocyte Sedimentation Rate 50 mm/hr (0-20)
== END ==
PROVIDERS: PCP Family Medicine; Visit Provider Podiatrist
DX: L97.511 Non-pressure chronic ulcer of other part of right foot limited to breakdown of skin (principal); E11.42 Type 2 diabetes mellitus with diabetic polyneuropathy
CPT/HCPCS: 36415; 71046; 73630; 80053; 83036; 85025; 85651; 86140; 93005

== ENCOUNTER → 2023-01-11 12:45 | Outpatient (CLI) | payer MEDICARE, SELFPAY ==
--- NOTE | 2023-01-11 12:48 | US_ITS ---
FINAL REPORT CLINICAL HISTORY: ulcer of right foot, HTN, DM FINDINGS: ANKLE-BRACHIAL PRESSURE INDICES Pressure indices are as follows: RIGHT LOWER EXTREMITY: Ankle-brachial pressure index: 1.2 Comments: Normal LEFT LOWER EXTREMITY: Ankle-brachial pressure index: 1.2 Comments: Normal CONCLUSION: No evidence of significant obstructive peripheral vascular disease of the lower extremities Reviewed, Interpreted and Dictated by Edwin Cano III, MD Transcribed by Kalli Strong Authenticated and [facility]
== END ==
LOC: RT 12:45
PROVIDERS: PCP Family Medicine; Visit Provider Podiatrist
DX: L97.511 Non-pressure chronic ulcer of other part of right foot limited to breakdown of skin (principal); R09.89 Other specified symptoms and signs involving the circulatory and respiratory systems
CPT/HCPCS: 93923

== ENCOUNTER 2023-01-18 10:16 | Inpatient (IN) | payer MEDICARE, SELFPAY ==
[2023-01-16 12:42] VITALS: BMI 44.1
[2023-01-18 06:22] VITALS: BP 145/83; PULSE 89; RESP 18; TEMP 36.1; O2SAT 95
[2023-01-18 06:38] LABS: POC Glucose,Bedside 208 (70-110)
[2023-01-18 09:21] VITALS: BP 102/92; BP 122/90; BP 123/90; BP 124/83; BP 150/58; BP 152/58; BP 70/40; BP 71/33; BP 75/45; BP 86/64; BP 90/73
--- NOTE | 2023-01-18 09:52 | ECG_ITS ---
APPROVED REPORT Exam: Resting ECG HR:133 bpm ECG Measurements Heart Rate 133 AXES WV 188 P 46 QRSd 116 QRS 150 QT 244 T 37 QTc 322 Conclusion SINUS TACHYCARDIA PATTERN CONSISTENT WITH PULMONARY DISEASE POSSIBLE RIGHT VENTRICULAR HYPERTROPHY [SOME/ALL OF: PROMINENT R IN V1, LATE TRANSITION, RAD, GIGI, SSS] MARKED ST DEPRESSION, CONSIDER SUBENDOCARDIAL INJURY [0.2+ mV ST DEPRESSION] ACUTE IA UNCONFIRMED REPORT Electronically signed by : Alejandro Weinberg MD 01/18/2023 20:28:18
--- NOTE | 2023-01-18 09:56 | ECG_ITS ---
APPROVED REPORT Exam: Resting ECG Conclusion Widespread ST elevation c.w acute MA WARNING: DATA QUALITY MAY AFFECT INTERPRETATION UNCONFIRMED REPORT Electronically signed by : Alejandro Weinberg MD 01/18/2023 20:28:10
--- NOTE | 2023-01-18 10:09 | CT_ITS ---
FINAL REPORT TECHNIQUE: Axial CT images of the abdomen and pelvis were obtained after the administration of oral and iv contrast. Coronal reformatted images were also obtained and reviewed.This study was performed with techniques to keep radiation doses as low as reasonably achievable (ALARA). Individualized dose reduction techniques using automated exposure control or adjustment of mA and/or kV according to the patient's size were employed. CLINICAL HISTORY: coded code blue COMPARISON: 02/02/2016 FINDINGS: CT OF THE ABDOMEN AND PELVIS WITH CONTRAST Abdomen: There is streak artifact from patient's arm position. There is hepatomegaly with fatty infiltration. There is a lobular contour which may represent cirrhosis. There is a small amount of gas in the liver worrisome for a small amount of portal venous gas. This could also represent pneumobilia but less likely. Etiology is uncertain. Post cholecystectomy. The spleen is unremarkable. No adrenal mass is present. The pancreas has an unremarkable appearance. The kidneys are normal, without evidence of mass or hydronephrosis. The aorta is normal in caliber. There are multiple air and fluid-filled bowel loops in a nonspecific pattern. No evidence of pneumoperitoneum. No evidence of pneumatosis. Pelvis: The appendix unremarkable. Hernandez catheter is present. No inflammatory process is seen. There is no evidence of mass or adenopathy. There are bilateral inguinal hernias containing fat. There are postoperative and degenerative changes in the lower lumbar spine. IMPRESSION: Suspect small amount of portal venous gas over pneumobilia. Cause is not identified. Bowel ischemia is not excluded. Follow-up CT may be helpful. Hepatomegaly, fatty infiltration, and cirrhosis. Reviewed, Interpreted and Dictated by Edwin Cano III, MD Transcribed by Karuna Paredes Authenticated and [facility]
--- NOTE | 2023-01-18 10:09 | CT_ITS ---
FINAL REPORT CLINICAL HISTORY: AMS code diana COMPARISON: 01/15/2019 FINDINGS: Axial images of the head were obtained without contrast. Coronal reformatted images were also obtained.This study was performed with techniques to keep radiation doses as low as reasonably achievable (ALARA). Individualized dose reduction techniques using automated exposure control or adjustment of mA and/or kV according to the patient''s size were employed. There is motion on many of the images which decreases the sensitivity. Streak artifact is seen on many images. There is no evidence of intracranial hemorrhage or mass. The ventricular size is within normal limits. There is no evidence of shift of the midline structures. No abnormal extra axial fluid collection is identified. No skull abnormality is seen on the bone window images. There is mild mucosal thickening in the maxillary sinuses. IMPRESSION: No acute intracranial abnormality. Reviewed, Interpreted and Dictated by Edwin Cano III, MD Transcribed by Miracle Lund Authenticated and [facility]
--- NOTE | 2023-01-18 10:09 | CT_ITS ---
FINAL REPORT TECHNIQUE: Then section axial CT images of the chest were obtained with contrast. Three-D reformatted images were also obtained.This study was performed with techniques to keep radiation doses as low as reasonably achievable (ALARA). Individualized dose reduction techniques using automated exposure control or adjustment of mA and/or kV according to the patient''s size were employed. CLINICAL HISTORY: respiratory failure code blue COMPARISON: 12/24/2021 FINDINGS: There is motion artifact on many of the images decreasing sensitivity of this exam. Endotracheal tube is present with the tip in the mid thoracic trachea. There is no evidence of pulmonary embolism. There is no evidence of thoracic aortic aneurysm or dissection. There is no evidence of mediastinal or hilar mass or adenopathy. There is no evidence of pulmonary mass or suspicious nodule. Bilateral lower lobe atelectasis. Limited images of the upper abdomen demonstrate a somewhat lobulated contour of the liver which may represent cirrhosis. IMPRESSION: No evidence of pulmonary embolism. No evidence of aneurysm or dissection. Reviewed, Interpreted and Dictated by Edwin Cano III, MD Transcribed by Karuna Paredes Authenticated and [facility]
[2023-01-18 10:18] LABS: Troponin I < 0.01 ng/ml (0.00-0.034)
--- NOTE | 2023-01-18 10:25 | ECG_ITS ---
APPROVED REPORT Exam: Resting ECG HR:121 bpm ECG Measurements Heart Rate 121 AXES MS 186 P 46 QRSd 102 QRS 89 QT 246 T 0 QTc 318 Conclusion SINUS TACHYCARDIA WITH OCCASIONAL SUPRAVENTRICULAR PREMATURE COMPLEXES MARKED ST DEPRESSION, CONSIDER SUBENDOCARDIAL INJURY [0.2+ mV ST DEPRESSION] ACUTE CO UNCONFIRMED REPORT Electronically signed by : Alejandro Weinberg MD 01/18/2023 20:27:30
--- NOTE | 2023-01-18 10:53 | EXP.OP.NOTE ---
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 In that time patient has had x-rays and MRI which were negative for osteomyelitis.? He has had organogenesis PuraPly grafting, local wound care, debridements, oral antibiotics, topical anti-infective powder therapy and dressing changes.? He has been offloading in a walking boot. We discussed conservative versus surgical treatment options. Conservative treatment options include local wound care, oral and IV antibiotics, change in shoe wear, taping/padding, and off-loading. We discussed surgical intervention for wound debridement and resection of the underlying bony prominence.? Patient understands that there is a chance that the toes can migrate to fill the gap or the foot may change shape after surgery.? Patient also understands that they could have wound healing complications including delayed healing and infection. We discussed that if the wound does not heal, it is possible that they may need a more proximal amputation and could result in further loss of digits, loss of partial foot or loss of leg. We discussed the risks and benefits in great detail. Other surgical risks include: prolonged pain and swelling, further infection requiring oral or IV antibiotics, delay in healing of soft tissue or bone, nerve or blood vessel damage, CRPS/RSD, DVT/PE, anesthesia complications, and even . All questions answered. Patient verbalized understanding. Consent obtained. Preop EKG and labs were normal, medical clearance per Dr. Lerma. Operative findings:: Right hallux valgus with prominent H IPJ bone spur. Diabetic foot ulcer pre debridement: 0.4 x 0.3 x 0.1 cm. Post sharp excisional debridement with 15 blade and forceps wound was excised full-thickness and sent as a path specimen. Post debridement wound 100% granular full-thickness down to the level of the bone and measured 1.0 x 0.5 x 0.3 cm. Wound edges able to be reapproximated and closed. Operative note:: On this date and time patient was deemed an appropriate surgical candidate. With informed consent signed, the patient was taken to the operating theater room. The patient was positioned supine. LMA anesthesia was induced. No tourniquet used. IV Vanco 1g, Cefepime 1g given. The right lower extremity was prepped and draped in normal sterile fashion. Right foot open bone biopsy, partial excision of phalanx: Attention was directed to the foot where ulcer was noted. An incision was made superior to the ulcer at the level of the H IPJ medially. Dissection full-thickness down to the level of the bone. A rongeur was used to take a piece of the phalanx and it was sent for culture and pathology. Wound was flushed with gentamicin. Due to the underlying bony prominence decision was made to do a partial phalanx resection with rongeur and power rasp was used to smooth down the bony prominence. Skin closed with nylon. Right foot wound debridement, ulcer biopsy: Attention was directed to the distal medial plantar right foot where an ulcer was noted. See operative findings for measurements. The wound base was fibrotic with scar tissue noted. There was no periwound maceration. The skin edges were debrided with 15' blade, some bleeding noted. The wound was sharply excisionally debrided with 15 blade forceps full-thickness through skin, subcutaneous tissue into the level of the deep fascia to phalanx bone. All nonviable fibrotic scar tissue, nonviable tissue and biofilm was debrided. The ulcer was excised and sent as a soft tissue biopsy to [facility]
--- NOTE | 2023-01-18 11:04 | EXP.ORTH.CON ---
History of Present Illness *Admission Date: 01/18/23 *Reason for visit:: S/p cardiac arrest *History of present illness: Patient was scheduled for an outpatient podiatry right foot bone biopsy and exostectomy procedure today. Preop labs and EKG unremarkable. Patient received a dose of cefepime without complication. Shortly after receiving vancomycin, patient did start to have some bradycardia and issue. He sustained cardiac arrest. CODE BLUE was called and patient was stabilized by the code team, hospitalist and pulmonology critical care team were all present in the OR. Cardiology consulted for decision was made to keep patient intubated, transferred to CT for additional testing and transferred to ICU for further monitoring/treatment. [facility] Disclaimer: The information contained in this section may have been updated after the patient was seen, as this information can be updated by other users. Medical History (Updated 01/18/23 @ 13:24 by Georgia Howell MD) Atypical chest pain Diabetes mellitus, type [address] (myocardial infarction) Fatigue Flu-like symptoms Gastroesophageal reflux disease History of COVID-19 HTN (hypertension) Hypothyroid On mechanically assisted ventilation Shock Sleep apnea SOB (shortness of breath) Syncope Surgical History (Updated 01/18/23 @ 11:11 by Gertrude Olivier DPM) History of back surgery Hx of cholecystectomy Family History Other Cancer Diabetes Heart attack Hyperlipidemia Hypertension Stroke Social History (Updated 01/18/23 @ 06:35 by Elsa Valle RN) Smoking Status: Never smoker alcohol intake: never substance use type: denies use current occupational status: disabled Travel in the last 8 weeks: None household members: spouse housing: house current occupational exposures/hazards: No caffeine: Yes Review of Systems Review of Systems Review of systems:: pertinent systems reviewed and negative unless documented below Constitutional Constitutional: Reports as per HPI Eyes Eyes: Reports system reviewed and no additional complaints, except as documented ENT Ears, Nose, Mouth, and Throat: Reports as per HPI *Cardiovascular Cardiovascular: Reports as per HPI, Reports acrocyanosis and Reports irregular heart rhythm *Respiratory Respiratory: Reports as per HPI *Gastrointestinal Gastrointestinal: Reports system reviewed and no additional complaints, except as documented *Genitourinary Genitourinary: Reports system reviewed and no additional complaints, except as documented *Musculoskeletal Musculoskeletal: Reports as per HPI Integumentary/Breasts Skin/Breast: Reports dry skin *Neurologic Neurologic: Reports paresthesias (diabetic neuropathy) Meds Home Medications and Allergies Home Medications Medication Instructions Recorded Confirmed Type triamterene 37.5 0.5 tab PO DAILY hypertension #90 04/19/22 01/10/23 Rx mg-hydrochlorothiazide 25 mg tablet tabs glimepiride 2 mg tablet 4 mg PO DAILY diabetes #180 tabs 11/22/22 01/10/23 Rx metformin 500 mg tablet 500 mg PO TID diabetes #180 tabs 11/22/22 01/10/23 Rx hydrocodone 5 mg-acetaminophen 325 1 tab PO Q6H PRN pain 5 days #20 01/17/23 Rx mg tablet tabs ibuprofen 800 mg tablet 800 mg PO BID pain, mild #60 tabs 01/17/23 Rx levofloxacin 500 mg tablet 500 mg PO Q24H infection 2 weeks 01/17/23 Rx #14 tabs ondansetron 4 mg disintegrating 4 mg PO Q6H nausea and vomiting 01/17/23 Rx tablet #30 tabs empagliflozin 10 mg tablet 10 mg PO DAILY Diabetes 01/18/23 History (Jardiance) hydrochlorothiazide 25 mg tablet 25 mg PO DAILY Fluid 01/18/23 History levothyroxine 175 mcg tablet 175 mcg PO DAILY Infection 01/18/23 History losartan 100 mg tablet See Rx Instructions .Route 01/18/23 History .COMPLEX bp nystatin 100,000 unit/gram topical 1 applic topical BID . 01/18/23 History powder omeprazole 40 mg capsule,delayed 4
[2023-01-18 11:05] VITALS: BP 109/73; BP 140/54
--- NOTE | 2023-01-18 11:11 | PC.NURSE ---
arrived to floor from surgery
--- NOTE | 2023-01-18 11:25 | ECG_ITS ---
APPROVED REPORT Exam: Resting ECG HR:115 bpm ECG Measurements Heart Rate 115 AXES ID 144 P -15 QRSd 96 QRS 64 QT 367 T 60 QTc 435 Conclusion SINUS TACHYCARDIA NONSPECIFIC ST & T-WAVE ABNORMALITY ABNORMAL RHYTHM ECG UNCONFIRMED REPORT Electronically signed by : Alejandro Weinberg MD 01/19/2023 21:15:42
[2023-01-18 11:53] LABS: Hematocrit 56.2 % (42.0-52.0); Hemoglobin 17.7 g/dL (14.1-18.0); White Blood Count 13.7 K/mm3 (4.8-10.8)
[2023-01-18 11:54] LABS: Lymphocytes % 63.9 % (10-50); Mean Corpuscular HGB Conc 31.4 g/dL (31.8-35.4); Mean Corpuscular Hemoglobin 29.4 pg (27.0-31.2); Mean Corpuscular Volume 93.7 fl (80-94); Mean Platelet Volume 7.6 fl (7.4-10.4); Monocytes % 1.6 % (1.7-9.3); Neutrophils % 31.4 % (37.0-80.0); Platelet Count 213 K/mm3 (142-424); Red Cell Distribution Width 13.2 % (11.5-17.5)
[2023-01-18 11:56] LABS: Eosinophils % 0.6 % (0.1-12.0)
[2023-01-18 11:57] LABS: Basophils # 0.1 K/mm3 (0-0.2); Basophils % 0.8 % (0.1-2.0); Eosinophils # 0.1 K/mm3 (0.0-0.4); Lymphocytes # 8.8 K/mm3 (0.7-4.5); Monocytes # 0.2 K/mm3 (0.1-1.0); Neutrophils # 4.3 K/mm3 (1.8-7.8)
[2023-01-18 11:58] LABS: Anion Gap 16.2 mEq/L (5-15); Blood Urea Nitrogen 16 mg/dl (9-20); Calcium 8.3 mg/dl (8.4-10.2); Carbon Dioxide 19 mmol/L (22.0-30.0); Chloride 107 mmol/L (98-107); Creatinine Clearance Estimated 110 mL/min (50-200); Estimated Glomerular Filt Rate 88 ml/min (>60); GFR (African American) 107 ML/MIN (>60); Glucose 117 mg/dl (74-100); MANUAL DIFFERENTIAL MANUAL DIFFERENTIAL (MANUAL DIFF); Potassium 3.2 mmoL/L (3.5-5.1); Sodium 139 mmol/L (136-145)
--- NOTE | 2023-01-18 12:05 | PC.NURSE ---
spoke with Any Rosa from [facility] at this time related to GCS 3 or<, medical history and other information provided at this time, states that nothing else is needed from us, call back with HUBER
--- NOTE | 2023-01-18 12:28 | EXP.CARD.CON ---
History of Present Illness History of Present Illness Consult date: 01/18/23 Requesting physician: Florencio Croft Consult reason: hypotension Chief complaint: abnormal EKG, cardiorespiratory arrest History of present illness: Cardiology consulted on this 52-year-old white male who was in outpatient surgery for wound debridement. After the procedure was finished and the operative team was closing, the patient became unresponsive with pulseless electrical activity. CPR and ACLS protocol began with return of spontaneous circulation on several occasions with continued CPR and medications per ACLS protocol. EKG obtained during code showed what appeared to be significant ST depression in the inferior and anterolateral leads with reciprocal ST elevation in the lead aVR. Cardiology was contacted and the case was discussed with Dr. Do for further evaluation and recommendations. Dr. Do was contacted by phone and EKG was sent to him for his review. He did not feel this was an acute STEMI but did recommend starting IV heparin and considering cardiac catheterization once CT ruled out pulmonary embolus and the patient had sustained circulatory stability. Multiple blood gases obtained during the code with pH of 6.9-7.0 noted despite adequate oxygenation. CT of the head showed no acute abnormality on preliminary reading, CT of the chest showed no large pulmonary emboli but due to recurrent loss of circulatory stability and repeated rounds of CPR/ACLS protocol, patient's decided to pursue comfort measures. Patient remains on the ventilator with IV medications support for blood pressure maintenance at this time. Plans for cardiac cath have been canceled. [facility] Disclaimer: The information contained in this section may have been updated after the patient was seen, as this information can be updated by other users. Medical History (Updated 01/18/23 @ 12:36 by SAPPHIRE Best) Atypical chest pain Diabetes mellitus, type 2 Family history of [place] (myocardial infarction) Fatigue Flu-like symptoms Gastroesophageal reflux disease History of COVID-19 HTN (hypertension) Hypothyroid Sleep apnea SOB (shortness of breath) Syncope Surgical History (Updated 01/18/23 @ 11:11 by Gertrude Olivier DPM) History of back surgery Hx of cholecystectomy Family History Other Cancer Diabetes Heart attack Hyperlipidemia Hypertension Stroke Social History (Updated 01/18/23 @ 06:35 by Elsa Valle RN) Smoking Status: Never smoker alcohol intake: never substance use type: denies use current occupational status: disabled Travel in the last 8 weeks: None household members: spouse housing: house current occupational exposures/hazards: No caffeine: Yes Review of Systems *Neurologic Neurologic: Reports paresthesias (diabetic neuropathy) Exam Data for Last 24 hours Vital signs and Labs for Last 24 Hours: Temp Pulse Resp BP Pulse Ox 97.0 F L 89 18 145/83 H 95 01/18/23 06:22 01/18/23 06:22 01/18/23 06:22 01/18/23 06:22 01/18/23 06:22 Laboratory Results - last 24 hr 01/18/23 06:26: POC Glucose 208 H 01/18/23 09:30: WBC 13.7 H, RBC 6.00, Hgb 17.7, Hct 56.2 H, MCV 93.7, MCH 29.4, MCHC 31.4 L, RDW 13.2, Plt Count 213, MPV 7.6, Neut % (Auto) 31.4 L, Lymph % (Auto) 63.9 H, [place] % (Auto) 1.6 L, Eos % (Auto) 0.6, Baso % (Auto) 0.8, Neut # (Auto) 4.3, Lymph # (Auto) 8.8 H, Bates # (Auto) 0.2, Eos # (Auto) 0.1, Baso # (Auto) 0.1 01/18/23 09:30: Sodium 139, Potassium 3.2 L, Chloride 107, Carbon Dioxide 19 L, Anion Gap 16.2 H, BUN 16, Creatinine 0.90, Estimated Creat Clear 110, Estimated GFR 88, Est GFR ( Amer) 107, Glucose 117 H, Calcium 8.3 L 01/18/23 : Troponin I < 0.01 I & O for Last 24 hours: Intake & Output 01/16/23 01/17/23 01/18/23 01/19/23 11:59 11:59 11:59 11:59 Weight 344 lb 0.008 oz Meds Home Medications and Allergies Home Medicatio
[2023-01-18 12:33] LABS: Lymphocytes % 66 % (10-50); Monocytes % 8 % (2-9); Neutrophils % 25 % (42-76); Nucleated Red Blood Cells 1; Platelet Estimate Normal; RBC Morphology Normal; Total Cells Counted 100
[2023-01-18 12:34] LABS: ABG Base Excess -15.9 mmol/L (-2.4-2.3); ABG HCO3 15.9 mmhg (22.0-26.0); ABG Oxygen Saturation 71 % (90-100); ABG PCO2 72.2 mmhg (35.0-45.0); ABG PH 6.96 mmol/L (7.35-7.45); ABG PO2 56.1 mmhg (80-100); ABG TCO2 18.2 mmhg (23-27)
[2023-01-18 12:35] LABS: Allen's Test YES; Oxygen 100 %; Source Right Radial
[2023-01-18 12:36] LABS: ABG PCO2 78.1 mmhg (35.0-45.0); ABG PH 6.99 mmol/L (7.35-7.45); ABG PO2 50.9 mmhg (80-100)
[2023-01-18 12:37] LABS: ABG Base Excess -13.1 mmol/L (-2.4-2.3); ABG HCO3 18.4 mmhg (22.0-26.0); ABG Oxygen Saturation 67 % (90-100); ABG TCO2 20.8 mmhg (23-27); Oxygen 100 %; Source ART LINE
[2023-01-18 12:39] LABS: ABG PCO2 178.3 mmhg (35.0-45.0); ABG PH 7.08 mmol/L (7.35-7.45); ABG TCO2 57.5 mmhg (23-27)
[2023-01-18 12:40] LABS: ABG Base Excess 22.1 mmol/L (-2.4-2.3); ABG Oxygen Saturation 72 % (90-100); Oxygen 100 %
[2023-01-18 12:41] LABS: Source A-LINE
[2023-01-18 12:42] LABS: ABG Base Excess -15.9 mmol/L (-2.4-2.3); ABG HCO3 15.7 mmhg (22.0-26.0); ABG PCO2 68.6 mmhg (35.0-45.0); ABG PH 6.98 mmol/L (7.35-7.45); ABG PO2 58.2 mmhg (80-100); ABG TCO2 17.8 mmhg (23-27)
[2023-01-18 12:43] LABS: ABG Oxygen Saturation 76 % (90-100); Allen's Test YES; Oxygen 100 %; Source Right Radial
--- NOTE | 2023-01-18 13:12 | P.HPDS_ITS ---
General Admission date:: 01/18/23 Discharge date: 01/18/23 *Admission Date: 01/18/23 [facility] Disclaimer: The information contained in this section may have been updated after the patient was seen, as this information can be updated by other users. Medical History (Updated 01/18/23 @ 12:36 by SAPPHIRE Best) Atypical chest pain Diabetes mellitus, type 2 Family history of [place] (myocardial infarction) Fatigue Flu-like symptoms Gastroesophageal reflux disease History of COVID-19 HTN (hypertension) Hypothyroid Sleep apnea SOB (shortness of breath) Syncope Surgical History (Updated 01/18/23 @ 11:11 by Gertrude Olivier DPM) History of back surgery Hx of cholecystectomy Family History Other Cancer Diabetes Heart attack Hyperlipidemia Hypertension Stroke Social History (Updated 01/18/23 @ 06:35 by Elsa Valle RN) Smoking Status: Never smoker alcohol intake: never substance use type: denies use current occupational status: disabled Travel in the last 8 weeks: None household members: spouse housing: house current occupational exposures/hazards: No caffeine: Yes Review of Systems *Neurologic Neurologic: Reports paresthesias (diabetic neuropathy) Exam Data for Last 24 hours Vital signs and Labs for Last 24 Hours: Temp Pulse Resp BP Pulse Ox 97.0 F L 89 18 145/83 H 95 01/18/23 06:22 01/18/23 06:22 01/18/23 06:22 01/18/23 06:22 01/18/23 06:22 Laboratory Results - last 24 hr 01/18/23 06:26: POC Glucose 208 H 01/18/23 09:30: WBC 13.7 H, RBC 6.00, Hgb 17.7, Hct 56.2 H, MCV 93.7, MCH 29.4, MCHC 31.4 L, RDW 13.2, Plt Count 213, MPV 7.6, Neut % (Auto) 31.4 L, Lymph % (Auto) 63.9 H, [place] % (Auto) 1.6 L, Eos % (Auto) 0.6, Baso % (Auto) 0.8, Neut # (Auto) 4.3, Lymph # (Auto) 8.8 H, [place] # (Auto) 0.2, Eos # (Auto) 0.1, Baso # (Auto) 0.1, Total Counted 100, Neutrophils % (Manual) 25 L, Lymphocytes % (Manual) 66 H, Monocytes % (Manual) 8, Metamyelocytes % 1.0, Nucleated RBCs 1, Platelet Estimate Normal, RBC Morphology Normal 01/18/23 09:30: Sodium 139, Potassium 3.2 L, Chloride 107, Carbon Dioxide 19 L, Anion Gap 16.2 H, BUN 16, Creatinine 0.90, Estimated Creat Clear 110, Estimated GFR 88, Est GFR ( Amer) 107, Glucose 117 H, Calcium 8.3 L 01/18/23 09:50: Specimen Source Right radial, O2 % 100, ABG pH 6.96 L*, ABG pCO2 72.2 H, ABG pO2 56.1 L, ABG HCO3 15.9 L, ABG Total CO2 18.2 L, ABG O2 Saturation 71 L*, ABG Base Excess -15.9 L, German Test Yes 01/18/23 10:02: Specimen Source A-line, O2 % 100, ABG pH 7.08 L*, ABG pCO2 178.3 H, ABG pO2 54.0 L, ABG HCO3 52.0 H, ABG Total CO2 57.5 H, ABG O2 Saturation 72 L*, ABG Base Excess 22.1 H, German Test N/a 01/18/23 10:15: Specimen Source Art line, O2 % 100, ABG pH 6.99 L*, ABG pCO2 78.1 H, ABG pO2 50.9 L, ABG HCO3 18.4 L, ABG Total CO2 20.8 L, ABG O2 Saturation 67 L*, ABG Base Excess -13.1 L, German Test N/a 01/18/23 11:25: Specimen Source Right radial, O2 % 100, ABG pH 6.98 L*, ABG pCO2 68.6 H, ABG pO2 58.2 L, ABG HCO3 15.7 L, ABG Total CO2 17.8 L, ABG O2 Saturation 76 L*, ABG Base Excess -15.9 L, German Test Yes 01/18/23 : Troponin I < 0.01 I & O for Last 24 hours: Intake & Output 01/15/23 01/16/23 01/17/23 01/18/23 23:59 23:59 23:59 23:59 Weight 156.036 kg Meds Home Medications and Allergies
--- NOTE | 2023-01-18 13:14 | EXP.PULM.CON ---
History of Present Illness History of present illness: Mr. Medeiros is a 52-year-old male history of type 2 diabetes mellitus presented to the hospital by elective foot surgery had a cardiopulmonary arrest status post CPR and pulmonary was called for further evaluation. [facility] Disclaimer: The information contained in this section may have been updated after the patient was seen, as this information can be updated by other users. Medical History (Updated 01/18/23 @ 13:24 by Georgia Howell MD) Atypical chest pain Diabetes mellitus, type 2 Family history of [place] (myocardial infarction) Fatigue Flu-like symptoms Gastroesophageal reflux disease History of COVID-19 HTN (hypertension) Hypothyroid On mechanically assisted ventilation Shock Sleep apnea SOB (shortness of breath) Syncope Surgical History (Updated 01/18/23 @ 11:11 by Gertrude Olivier DPM) History of back surgery Hx of cholecystectomy Family History Other Cancer Diabetes Heart attack Hyperlipidemia Hypertension Stroke Social History (Updated 01/18/23 @ 06:35 by Elsa Valle RN) Smoking Status: Never smoker alcohol intake: never substance use type: denies use current occupational status: disabled Travel in the last 8 weeks: None household members: spouse housing: house current occupational exposures/hazards: No caffeine: Yes Review of Systems Review of Systems Review of systems:: unable to obtain Review of systems (narrative): Patient intubated and sedated *Neurologic Neurologic: Reports paresthesias (diabetic neuropathy) Pulmonology Exam Inpatient Vital signs and Labs for Last 24 Hours: Temp Pulse Resp BP Pulse Ox 97.0 F L 89 18 145/83 H 95 01/18/23 06:22 01/18/23 06:22 01/18/23 06:22 01/18/23 06:22 01/18/23 06:22 Laboratory Results - last 24 hr 01/18/23 06:26: POC Glucose 208 H 01/18/23 09:30: WBC 13.7 H, RBC 6.00, Hgb 17.7, Hct 56.2 H, MCV 93.7, MCH 29.4, MCHC 31.4 L, RDW 13.2, Plt Count 213, MPV 7.6, Neut % (Auto) 31.4 L, Lymph % (Auto) 63.9 H, [place] % (Auto) 1.6 L, Eos % (Auto) 0.6, Baso % (Auto) 0.8, Neut # (Auto) 4.3, Lymph # (Auto) 8.8 H, [place] # (Auto) 0.2, Eos # (Auto) 0.1, Baso # (Auto) 0.1, Total Counted 100, Neutrophils % (Manual) 25 L, Lymphocytes % (Manual) 66 H, Monocytes % (Manual) 8, Metamyelocytes % 1.0, Nucleated RBCs 1, Platelet Estimate Normal, RBC Morphology Normal 01/18/23 09:30: Sodium 139, Potassium 3.2 L, Chloride 107, Carbon Dioxide 19 L, Anion Gap 16.2 H, BUN 16, Creatinine 0.90, Estimated Creat Clear 110, Estimated GFR 88, Est GFR ( Amer) 107, Glucose 117 H, Calcium 8.3 L 01/18/23 09:50: Specimen Source Right radial, O2 % 100, ABG pH 6.96 L*, ABG pCO2 72.2 H, ABG pO2 56.1 L, ABG HCO3 15.9 L, ABG Total CO2 18.2 L, ABG O2 Saturation 71 L*, ABG Base Excess -15.9 L, German Test Yes 01/18/23 10:02: Specimen Source A-line, O2 % 100, ABG pH 7.08 L*, ABG pCO2 178.3 H, ABG pO2 54.0 L, ABG HCO3 52.0 H, ABG Total CO2 57.5 H, ABG O2 Saturation 72 L*, ABG Base Excess 22.1 H, German Test N/a 01/18/23 10:15: Specimen Source Art line, O2 % 100, ABG pH 6.99 L*, ABG pCO2 78.1 H, ABG pO2 50.9 L, ABG HCO3 18.4 L, ABG Total CO2 20.8 L, ABG O2 Saturation 67 L*, ABG Base Excess -13.1 L, German Test N/a 01/18/23 11:25: Specimen Source Right radial, O2 % 100, ABG pH 6.98 L*, ABG pCO2 68.6 H, ABG pO2 58.2 L, ABG HCO3 15.7 L, ABG Total CO2 17.8 L, ABG O2 Saturation 76 L*, ABG Base Excess -15.9 L, German Test Yes 01/18/23 : Troponin I < 0.01 I & O for Labs for Last 24 Hours: Intake & Output 01/15/23 01/16/23 01/17/23 01/18/23 23:59 23:59 23:59 23:59 Weight 344 lb 0.008 oz Constitutional: Present severe distress Comment:: Intubated and Sedated Head: Present normocephalic and atraumatic Neck: Present normal inspection and trachea midline Respiratory: Present patient mechanically ventilated, prolonged expiratory phase and rhonchi; Absent wheezes C
--- NOTE | 2023-01-18 13:43 | SUR.OPER ---
0921-PATIENT BECAME BRADYCARDIC DURING PROCEDURE. SHASTA RN NOTIFIED STAFF TO ABORT PROCEDURE. CODE BLUE ACTIVATED. CPR STARTED. 0921-EPINEPHRINE 1MG IVP JTAYLOR INFORMATICS MANAGER 0925- ATROPINE 1MG IVP JTAYLOR INFORMATICS MANAGER 0926- BP 123/90. 0927- PULSE LOST, CPR STARTED. 0928- EPINEPHRINE 1MG IVP RFEEBACK INFORMATICS MANAGER 0929- RHYTHM CHECK- PEA. CPR RESUMED. IO PLACED TO LEFT TIBIA. 0930- ATROPINE 1MG IVP JTAYLOR INFORMATICS MANAGER. 1 LITER NS HUNG WIDE OPEN RATE. 0931- RHYTHM CHECK-PEA. CPR RESUMED. 0932- EPINEPHRINE 1MG IVP RFEEBACK INFORMATICS MANAGER 0934- RHYTHM CHECK- SINUS HR 97, BP 86/64. 0935- FSBS 122. SODIUM BICARD 1 AMP GIVEN IVP. LAB AT BEDSIDE TO DRAW BLOOD 0936- EPINEPHRINE 1MG IVP RFEEBACK INFORMATICS MANAGER 0937-BENADRYL 50MG IVP 0938- WEAK PULSE NOTED 0939- SINUS TACHYCARDIA. HR 118, O2 78%, END TIDAL 28. 0940- BRADYCARDIC, PULSE WEAK. EPINEPHRINE 1MG GIVEN, SODIUM BICARB 1 AMP GIVEN IVP. 0941- DR PALM UPDATING FAMILY ON PATIENT STATUS 0942- 150/58. EPINEPHRINE DRIP STARTED AT 8ML/HR. 0943- 152/58. END TIDAL 40. SUPPORT PERSON WITH FAMILY 0944- 90/73. 1 LITER OF LACTATED RINGERS HUNG. O2 81%. END TIDAL 37. 0949- EPINEPHRINE 1MG IVP. PULSE LOST. RESUMED COMPRESSIONS. 0951-PULSE CHECK SINUS TACHYCARDIA HR 118. 0952- LEVOPHED DRIP STARTED AT MAX RATE PER PHARMACY. ABG DRAWN, EKG PERFORMED, FSBS 180. 0953- PATIENTS BRADYCARDIC HR 40 0954- EPINEPHRINE 1MG GIVEN IVP 0955- 16F DRISCOLL CATHETER ANCHORED. CLEAR YELLOW UOP NOTED 0957- HR 121, SINUS TACHYCARDIA. SECOND EKG PERFORMED 0959- 2 AMPS OF SODIUM BICARB IVP GIVEN. 1000- PULSE FAST AND THREADY. LR 1 LITER HUNG AT WIDE OPEN RATE. 1002- BP 70/40. 1003- SODIUM BICARB DRIP HUNG. 1006- SPO2 80%. 1015- ABG OBTAINED 1021- 124/83 1022- SODIUM BICARB [address] SAMANO 1023- SODIUM BICARB [address] SAMANO 1025- ANOTHER EKG PERFORMED 1029- #18G IV PLACED TO LEFT AC PER NICOLASA GANN. DR CHEATHAM UPDATING FAMILY. 1031- BP 102/92. 1032- BP 78/45. CALCIUM CHLORIDE 1 GRAM GIVEN. 1035- PATIENT TRANSFERRED TO [facility]RET[facility] FOR TRANSPORT TO CT. 1036- BP 76/45. HR 116. 1037- VASOPRESSOR DRIP STARTED AT MAX RATE PER PHARMACY 1041- PATIENT TRANSPORTED TO CT WITH ZOLL MONITORS IN PLACE. KALEY RN, GEOFFREY RN, KUMAR RN, SVETA RN, EWA RN, ALBINA RT, RAMIREZ RT, YING RT, JADYN RN 1103- TRANSFERRED PATIENT FROM CT TABLE BACK TO STRETCHER FOR TRANSPORT TO ROOM 219. 1105- PATIENT BECAME BRADYCARDIC DURING TRANSPORT. PULSE WEAK, CPR INITIATED. 1108- UPDATED FAMILY CHASIDY RN. 1111- EPINEPHRINE 1MG GIVEN DIANA GANN 1112- RHYTHM CHECK- SINUS TACHYCARDIA, HR 112. 1114- PULSE WEAK. RESUMED CPR 1115- EPINEPHRINE 1MG GIVEN LEXI RN. 1125- FSBS 200. BP 140/54. 1130- 18F NG PLACED TO RIGHT NARE BY HEYDI RN. 65CM. DR CHEATHAM UPDATING FAMILY ON PATIENTS STATUS. 1135-PULSE LOST. COMPRESSIONS STARTED. 1136- EPINEPHRINE 1MG GIVEN 1138- RHYTHM CHECK, WEAK PULSE NOTED. SINUS TACHYCARDIA 121. SODIUM BICARB 1 AMP GIVEN IVP PER LEXI GANN. #20G IV RIGHT AC PLACED. 1139- HEPARIN BOLUS 34781 UNITS GIVEN PER MONCHO GANN. 1140- HEPARIN DRIP STARTED AT 40 ML/HR- DOSE VERIFIED BY PHARMACY. 1143- MEROPENEM ABX STARTED. BP 109/73. PATIENT SINUS TACHYCARDIA 1144- PULSE LOST. RESUME CPR. DR. CHEATHAM AND FAMILY AT BEDSIDE. 1145- EPINEPHRINE 1MG GIVEN IVP PER LEXI GANN. 1146- SINUS TACHYCARDIA HR 100. BLOOD TINGED EMESIS NOTICED IN NG SUCTION CANISTER. 1148- DR CHEATHAM AT BEDSIDE WITH FAMILY PRESENT IN THE ROOM. DR CHEATHAM STATES, DOES NOT WANT TO CONTINUE WITH COMPRESSIONS IF HE LOSES A PULSE AGAIN. FAMILY REMAINING AT BEDSIDE. ALL MEDICATIONS WILL CONTINUE TO INFUSE AT THIS TIME. 1150- REPORT GIVEN TO LEXI GANN, WHO WILL BE ASSUMING CARE OF PATIENT FROM THIS POINT FORWARD.
--- NOTE | 2023-01-18 15:43 | EXP.EVENT.NO ---
CODE BLUE was activated at 9:21. Responded along with other members of nursing and pharmacy at 9:22 to the OR. We were informed at that time the patient had gone into cardiac arrest and become pulseless as surgery was being completed on his right foot. CPR was already in process with chest compressions. Multiple rounds of ACLS, chest compressions, ACLS meds administered over the course of the next 35 minutes. Patient had sustained ROSC at 9:57. monitoring manager in place and pulse check was evaluated every 2 minutes. On pulse checks, patient found to have PEA, not a shockable rhythm. Had a secured airway from his surgery previously placed by anesthesia. By the time of ROSC, patient had been placed on an epinephrine drip and a norepinephrine drip. Had received at least 2 if not 3 L of fluid. See MAR for full details of medications administered and fluids administered during this timeframe. In consultation with pulmonary critical care, we proceeded with monitoring patient for another 15 to 20 minutes before transitioning to CT to perform CT head, CTA of chest, and CT abdomen pelvis and subsequent admission to the ICU. Differential diagnosis for patient's cardiac arrest with pulseless electrical activity included anaphylaxis, PE, OH, hypovolemia, or hemorrhage. Patient did not have any obvious signs of bleeding, initial troponin was undetectable and EKG showed diffuse ST segment depressions. Had received adequate fluid resuscitation along with vasopressors. After performing imaging, patient went into cardiac arrest again on his way up to the ICU. CPR begun again at 11:05. Again received multiple rounds of medications, chest compressions, and pulse checks every 2 minutes monitoring for a shockable rhythm. He remained in PEA until ROSC was achieved at 11:38. CTs reviewed showing questionable concern for small right upper lobe PE but no massive or saddle pulmonary embolus. No dissection or aneurysm appreciated. CT abdomen positive for nodular liver suggestive of cirrhosis but no other significant intra-abdominal pathology appreciated. No significant coronary artery calcifications. Family was kept informed throughout his event. Discussion by myself and podiatry with family at approximately 10:15 after achieving ROSC the first time. Repeat discussion with family at approximately 11:35. Family at bedside toward the end of the last round of ACLS. at bedside stated she did not want to proceed with further chest compressions given duration of resuscitation this morning as patient's pulse became thready and difficult to assess after second episode of ROSC. Patient was transitioned at this time to comfort measures. Remained on epinephrine, vasopressin, norepinephrine, antibiotics, had drip, and IV fluids along with ventilator until approximately 1 PM. At this time family decided to de-escalate care given no chance of meaningful recovery. Patient terminally extubated and vasopressors were turned off. Time of called at 1:05pm. licensing registration examiner and Richard notified. stated she did not want to consider autopsy. She did however want to try and donate tissues or organs of possible.
--- NOTE | 2023-01-18 15:43 | EXP.DEATH.DS ---
Discharge Sum: Prov Provider Primary care physician: Oliver Lerma MD Visit Care Team Role Provider Type Oliver Lerma MD Primary Care Provider Staff Physician Juan J Dee MD Other Providers Staff Physician Yonas Mane MD Other Providers Staff Physician Georgia Howell MD Other Providers Staff Physician Gertrude Olivier, PAPA Other Providers Staff Physician Kendall Kumar MD Other Providers Consulting Physician Shy Kowalski MD Other Providers Staff Physician Fei Luna MD Other Providers Staff Physician SAPPHIRE Best Other Providers Physician Formal Wear Rental Clerk Cliff Cuevas MD Other Providers Staff Physician Jonathan Calvillo MD Other Providers Consulting Physician Memo Townsend MD Other Providers Consulting Physician Edwin Stein MD Other Providers Staff Physician Chris Mercado MD Other Providers Staff Physician Didi Miller APRN Other Providers Nurse Practitioner Angela Benson APRN Other Providers Nurse Practitioner Florencio Croft MD Admit Provider Staff Physician Attending Provider Admitting clinician: Florencio Croft Attending physician on admission: Florencio Croft Consults: 01/18/23 10:12 Consult to Podiatry [CONS] Routine Consulting Provider: Gertrude Olivier Reason For Consult: right foot wound Consult to Pulmonology [CONS] Routine Consulting Provider: Georgia Howell Reason For Consult: s/p code 01/18/23 10:56 Cardiology Consult [Consult to Cardiology] [CONS] Routine Consulting Provider: Cardiology Reason For Consult: post code Consult to General Surgery [CONS] Routine Consulting Provider: General Surgery Reason For Consult: placement of central line, please Pronouncing clinician: Florencio Croft Discharge Sum: Diag PCOD Cause of : Cardiac arrest with pulseless electrical activity Contributing Factors (1) Shock: Acute (2) Type 2 diabetes mellitus: (3) Cirrhosis: New diagnosis based on CT of abdomen obtained after code (4) Ulcer of right great toe due to diabetes mellitus: (5) Exostosis of right foot: (6) Status post right foot surgery: (7) Morbid obesity with body mass index (BMI) of 40.0 to 44.9 in adult: Discharge Sum: Summary Date and Time Date of admission: 01/18/23 10:16 Date of : 01/18/23 Time of : 13:05 Hospital Course prior to Hospital Course Information: Patient presented today for elective debridement diabetic ulcer on his right great toe. Preop labs and EKG obtained a week ago. Reviewed, no concerning findings at that time. Patient was taken to the OR, procedure performed (see op note for full details). Toward the end of his procedure, the patient became hypotensive, and went into PEA arrest. CPR initiated by the OR team. Full details from event note for remainder of course as follows. CODE BLUE was activated at 9:21.? Responded along with other members of nursing and pharmacy at 9:22 to the OR.? We were informed at that time the patient had gone into cardiac arrest and become pulseless as surgery was being completed on his right foot.? CPR was already in process with chest compressions.? Multiple rounds of ACLS, chest compressio
--- NOTE | 2023-01-18 16:47 | PC.NURSE ---
1317 photogrammetric compilation specialist contacted 1322 [facility] contacted, spoke with Nadira Mock, , ice placed in groin, armpits, on chest and on sides of face, saline added to eyes 1350 received a call from Nadira Mock with [facility] asking for contact information for family 1418 received a call from Nadira Mock with [facility] confirming 's phone number [phone] Any Rosa from [facility] called to advise that permission had been given by family for eye retrieval and that the team would call with an ETA [id number] notified by [employer] supervisor that eye retrieval team would arrive in approximately 2 hours [address] [place] called to notify that they would be transporting the patient for [facility] 1652 notified by [employer] supervisor that eye retrieval team stated GPS says ETA is [id number]
--- NOTE | 2023-01-18 18:40 | PC.NURSE ---
1835 eye retrieval team arrived to floor
--- NOTE | 2023-01-18 20:07 | PC.NURSE ---
John Home called at this time
== END 2023-01-18 21:25 | disposition expired | DRG 987 ==
LOC: 2ND 10:17
PROVIDERS: Internal Medicine Pulmonary Disease; Podiatrist; Admitting Provider Internal Medicine Adolescent Medicine; PCP Family Medicine; Visit Provider Internal Medicine Adolescent Medicine
PROC: 0QBQ0ZX Excision of Right Toe Phalanx, Open Approach, Diagnostic (ICD-10-PCS; principal; 2023-01-18 07:30)
DX: I97.121 Postprocedural cardiac arrest following other surgery (principal); J96.01 Acute respiratory failure with hypoxia; E87.20 Acidosis, unspecified; R57.9 Shock, unspecified; Y83.8 Other surgical procedures as the cause of abnormal reaction of the patient, or of later complication, without mention of misadventure at the time of the procedure; E11.621 Type 2 diabetes mellitus with foot ulcer; Z51.5 Encounter for palliative care; I10 Essential (primary) hypertension; E03.9 Hypothyroidism, unspecified
CPT/HCPCS: 20240; 28124; 36415; 70450; 71275; 74177; 80048; 82803; 82962; 84484; 85007; 85025; 87070; 87077; 87186; 87205; 88304; 88305; 88311; 93005; 96374; C1751; J1335; J2185; J3370; Q9967